=== PATIENT | female | born 1990 | race Caucasian/White ===

== ENCOUNTER → 2017-05-10 18:47 | Outpatient (CLI) | payer MEDICAID, SELFPAY ==
[2017-05-10 20:29] LABS: Chlamydia Trachomatis by PCR Negative (Negative); Neisserai gonorrhoeae by PCR Negative (Negative); Probe Check PASS; Sample Adequacy Control PASS; Specimen Processing Control PASS
[2017-05-14 15:19] LABS: HPV Reflexed? NOT INDICATED
== END ==
PROVIDERS: Visit Provider Obstetrics & Gynecology
DX: Z12.4 Encounter for screening for malignant neoplasm of cervix (principal); Z11.3 Encounter for screening for infections with a predominantly sexual mode of transmission
CPT/HCPCS: 87491; 87591; 88175; G0145

== ENCOUNTER → 2017-05-20 15:22 | Outpatient (CLI) | payer MEDICAID, SELFPAY ==
[2017-05-20 18:14] LABS: Absolute Neutrophil Count 6.7 X10^3/uL (2.0-7.7); Basophil# 0.02 X10^3/uL; Basophil% 0.2 % (0-1); Eosinophils% 1.2 % (0-5); Hemoglobin 10.9 g/dl (12.0-15.0); Lymphocyte % 16.2 % (19-41); Mean Corpuscular Hgb 28.8 pg (27.0-32.0); Mean Corpuscular Volume 87.1 fL (81-99); Mean Platelet Vol. 12.3 fl (6.2-12.0); Monocyte# 0.45 X10^3/uL; Monocyte% 5.2 % (0-10); Neutrophil # 6.66 X10^3/uL (2.7-7.7); Neutrophil % 77.1 % (47-70); Platelet Count 246 K/mm3 (150-450); RBC Distribution Width CV 14.3 % (11.6-14.6); RBC Distribution Width SD 44.2 fl (35.1-43.9); Red Blood Count 3.79 M/mm3 (4.2-5.4); White Blood Count 8.6 K/mm3 (4.4-11.0)
[2017-05-20 18:17] LABS: POSITIVE COUNT NO; POSITIVE DIFFERENTIAL NO; POSITIVE MORPHOLOGY NO
[2017-05-20 18:28] LABS: Color, Urine Straw (Yellow); Glucose, Dipstick Normal (Normal); Ketone-Dipstick Negative (Negative); Leukocyte Esterase-Dipstick Negative /ul (Negative); Nitrite-Dipstick Negative (Negative); Occult Blood-Urine Negative /ul (Negative); Protein-Dipstick Negative (Negative); Urine Bilirubin Dipstick Negative (Negative); Urine Clarity Clear (Clear); Urine Urobilinogen Normal (Normal)
[2017-05-20 18:29] LABS: Thyroid Stim Hormone (TSH) 1.07 uIU/mL (0.358-3.74)
[2017-05-20 18:59] LABS: Amphetamine Urine VISTA NEGATIVE (<1000 ng/mL); Barbiturate Urine VISTA NEGATIVE (< 200 ng/mL); Benzodiazepine Urine VISTA NEGATIVE (< 200 ng/mL); Cocaine Urine VISTA NEGATIVE (< 300 ng/mL); Ecstacy Urine VISTA NEGATIVE (< 500 ng/mL); Methadone Urine VISTA NEGATIVE (< 300 ng/mL); PCP Urine VISTA NEGATIVE (< 25 ng/mL); THC Urine VISTA NEGATIVE (< 50 ng/mL); Vista UDS pH Range 6
[2017-05-20 19:07] LABS: HIV - WCH Non-Reactive (Nonreactive)
[2017-05-22 11:22] LABS: HEPATITIS B SURFACE AG Negative (Negative); Hep C Antibodies <0.1 s/co ratio (0.0-0.9)
[2017-05-24 02:58] LABS: Prenatal RPR NONREACTIVE (NONREACTIVE)
== END ==
PROVIDERS: Visit Provider Obstetrics & Gynecology
DX: Z34.82 Encounter for supervision of other normal pregnancy, second trimester (principal); Z3A.00 Weeks of gestation of pregnancy not specified
CPT/HCPCS: 36415; 80307; 81002; 84443; 85025; 86703; 86762; 86803; 87340

== ENCOUNTER → 2017-08-12 09:00 | Outpatient (CLI) | payer MEDICAID, SELFPAY ==
--- NOTE | 2017-08-12 09:00 | DT_ITS ---
This patient was seen during an EMR downtime August 12, 2017 - August 19, 2017. This patient may have a combination of paper and electronic documentation or all paper documentation. All documentation is viewable within the e-chart portion of [facility] for each patient visit.
[2017-08-18 02:40] LABS: Glucose Challenge Gest 1H 50g 57 mg/dL (70-140)
[2017-08-18 03:02] LABS: Hemoglobin 9.3 g/dl (12.0-15.0); Mean Corpuscular Hgb 26.7 pg (27.0-32.0); Mean Corpuscular Volume 86.2 fL (81-99); Mean Platelet Vol. 12.6 fl (6.2-12.0); Platelet Count 225 K/mm3 (150-450); Red Blood Count 3.48 M/mm3 (4.2-5.4); Scan Indicated on CBC? Y/N NO; White Blood Count 8.2 K/mm3 (4.4-11.0)
== END ==
PROVIDERS: Visit Provider Obstetrics & Gynecology
DX: Z34.83 Encounter for supervision of other normal pregnancy, third trimester (principal)
CPT/HCPCS: 36415; 82950; 85027

== ENCOUNTER → 2017-10-14 13:36 | Outpatient (CLI) | payer MEDICAID, SELFPAY ==
[2017-10-14 17:04] LABS: Group B Strep DNA By PCR Negative (Negative); Internal Control PASS; Probe Check PASS; Specimen Processing Control PASS
== END ==
PROVIDERS: Visit Provider Obstetrics & Gynecology
DX: Z36.85 Encounter for antenatal screening for Streptococcus B (principal)
CPT/HCPCS: 87081; 87653

== ENCOUNTER 2017-10-30 07:03 | Inpatient (IN) | payer MEDICAID, SELFPAY ==
[2017-10-30 07:16] VITALS: BMI 27.6
[2017-10-30] MEDS: Lactated Ringers 1,000 ML 50 ML IV ×2 (07:45→12:00)
[2017-10-30] MEDS: Oxytocin 30 units/NS 500 ml 30 UNITS/500 ML IV.SOLN IV (07:53)
[2017-10-30 08:07] LABS: Hematocrit 30.9 % (37-47); Mean Corp Hgb Conc 32.4 g/gl (32-36); Mean Corpuscular Hgb 26.2 pg (27.0-32.0); Mean Corpuscular Volume 81.1 fL (81-99); Mean Platelet Vol. 12.5 fl (6.2-12.0); Platelet Count 201 K/mm3 (150-450); RBC Distribution Width SD 45.8 fl (35.1-43.9); Red Blood Count 3.81 M/mm3 (4.2-5.4); White Blood Count 8.8 K/mm3 (4.4-11.0)
[2017-10-30 08:08] LABS: Scan Indicated on CBC? Y/N NO
[2017-10-30] MEDS: fentaNYL-bupivacaine (epidural) 100 ML BAG EPIDURAL (12:15)
--- NOTE | 2017-10-30 12:27 | PCM.PN.BLA ---
Progress Note LABOR PROGRESS NOTE Induction at 39 6/7 wk Epidural just placed and now comfortable. Pain was 7-8 and now 0 AVSS Pitocin at 6 mIU/min CX: 3/75/-2 to -3 VTX EFM 130-140s avg variability. Accels noted. Category I tracing UCs q 1-3 mins. with some coupling and spacing A/P: 39 6/7 wk EGA. Induction. Adequate progress noted. Epidural placed, comfortable. Continue labor. Position changes to assist rotation and descent
--- NOTE | 2017-10-30 14:47 | PCM.PN.BLA ---
Progress Note LABOR PROGRESS NOTE Pitocin at 6 mIU/min EFM 110-120s avg variability. Accels noted. Early decels and some variable decels Category I tracing UCs noted q 2-3 mins CX: per RN check 1438 6/-2 A/P: 39 6/7 wk induction. Continue induction. Anticipate .
[2017-10-30] MEDS: Oxytocin 30 units/NS 500 ml 30 UNITS/500 ML IV.SOLN 334 UNITS IV (16:28)
--- NOTE | 2017-10-30 16:32 | PCM.OB.VAG ---
Vaginal Delivery Maternal Presentation: Elective Induction 39 6/7 wk induction Method of Induction: Pitocin, Amniotomy Amniotic Membrane Rupture Type: Artificial Amniotic Fluid Description: Clear Final CANDIS: 10/31/17 Gestational age: 39 Weeks and 6 Days Date of Procedure: 10/30/17 Pre-Operative Diagnosis: 39+ wk induction Post-Operative Diagnosis: same Surgery/ Procedure Performed: Spontaneous Vaginal Delivery Type of Anesthesia: Epidural Description of Procedure: of vasquez viable male. 8/9 ap intact perineum. No nuchal cord. Shoulders delivered easily. to maternal abdomen with spont cry. Delayed cord clamping. Cord then clamped x two and cut. PP exam no lacerations Placenta delivered by spont expulsion, expression. 3V cord, normal appearing intact with trailing membranes Counts correct EBL 200 cc Presentation: Vertex, ANMOL Placental Delivery Description: Spontaneous Placenta Disposition: [facility] Cord Vessel Description: 3 Vessels Nuchal Cord Compression: Without compression Cord Entanglement: None Drain: Mario to straight drain Estimated Blood Loss: 200 A gender: Male (1 minute): 8 (5 minute): 9 Episiotomy Description: None Laceration: None Medications given after delivery: IV Pitocin Complications: None
--- NOTE | 2017-10-30 16:35 | PCM.DCVAG ---
Discharge Diet: No Restrictions Discharge Activity: May Shower, May Take a Tub Bath May resume sexual activity in: 4-6 weeks Additional Activity Instructions:: Nothing in the vagina for 4-6 weeks. You may return to work/school in 6 weeks. Additional Instructions: If you experience any of the following, contact your healthcare provider. Bleeding that soaks a pad every hour for 2 hours Fever 100.4 or higher Unrelieved abdominal pain Problems urinating (including inability to urinate or burning while urinating). Visual changes Severe headache Flu-like symptoms Pain or redness in one of both of your breasts Pain, warmth, tenderness or swelling in your legs, especially the calf area Frequent nausea and vomiting Symptoms of depression or anxiety If you experience any of the following, call 911 or go to the nearest Emergency Room. Chest pain Problems breathing Seizure activity Partial or complete paralysis of a body part, slurred speech, weakness or drooping of the face, or a sudden inability to walk or hold your balance Allergies/Adverse Reactions: Allergies No Known Allergies Allergy (Verified 10/30/17 08:03) Medications to take at Discharge Vits [Prenatabs FA] 1 tablet PO DAILY 10/21/16 Please Follow Up With: Bonita Corbin MD - [phone] When: Call to make an appointment with your doctor in 6 weeks. Primary Care Physician: Care Physician,No Primary [Primary Care Provider] - Test Results: Test results from this visit will be discussed in further detail at your follow-up appointment, if applicable.
[2017-10-30] MEDS: Oxytocin 30 units/NS 500 ml 30 UNITS/500 ML IV.SOLN 167 UNITS IV (16:58)
[2017-10-30] MEDS: Ibuprofen 600 MG Tablet PO (17:30)
[2017-10-30] MEDS: 0.9% Saline Lock 10 ML Syringe IV (18:00)
[2017-10-30 19:45] VITALS: BP 112/63; PULSE 92; RESP 16; TEMP 36.9; O2SAT 97
[2017-10-31 00:20] VITALS: BP 115/61; PULSE 71; RESP 16; TEMP 36.8
[2017-10-31] MEDS: Ibuprofen 600 MG Tablet PO (00:24)
[2017-10-31 04:30] VITALS: BP 115/69; PULSE 70; RESP 16; TEMP 36.3
[2017-10-31 08:00] VITALS: BP 111/56; PULSE 67; RESP 16; TEMP 36.4
--- NOTE | 2017-10-31 08:20 | PCM.PN.OB ---
Subjective: PPD#1 Induction at 39 6/7 wk Doing well. Pain control adequate. Baby 9# Nursing. No concerns voiced. - Physical Exam General: Alert, Oriented x3, Cooperative, No apparent distress HEENT: Atraumatic Neck: Supple Abdomen: Soft - Fundus firm NT approx at umbilicus Psych/Mental Status: Normal Affect Vital Signs Temp Pulse Resp BP Pulse Ox 97.3 F L 70 16 115/69 97 10/31/17 04:30 10/31/17 04:30 10/31/17 04:30 10/31/17 04:30 10/30/17 19:45 Oxygen Delivery Method Room Air Weight: 82.372 kg Body Mass Index (BMI) 27.6 Intake and Output for Last 24 Hours 10/29/17 10/30/17 10/31/17 23:59 23:59 23:59 Intake Total 3590 / 3590 Output Total 4700 / 4700 Balance -1110 / -1110 Laboratory Tests Past 24 Hrs 10/30/17 07:45 Blood Type O POSITIVE Antibody Screen NEGATIVE Medical Necessity - Tobacco Use Smoking Status: Never smoker Assessment/Plan PPD#1 Stable . Continue routine care.
[2017-10-31] MEDS: Acetaminophen 500 MG Tablet 1000 MG PO (09:39)
[2017-10-31] MEDS: Prenatal Vits Tablet 1 TABLET PO (09:39)
[2017-10-31 12:00] VITALS: BP 111/72; PULSE 76; RESP 18; TEMP 36.6
[2017-10-31 16:00] VITALS: BP 137/74; PULSE 74; RESP 18; TEMP 37.3
[2017-10-31 20:01] VITALS: BP 127/77; PULSE 84; RESP 16; TEMP 36.6; O2SAT 98
== END 2017-10-31 20:25 | disposition home or self-care (01) | DRG 373 ==
PROVIDERS: Admitting Provider Obstetrics & Gynecology; Visit Provider Obstetrics & Gynecology
DX: O99.02 Anemia complicating childbirth (principal); D64.9 Anemia, unspecified; O76 Abnormality in fetal heart rate and rhythm complicating labor and delivery; Z79.899 Other long term (current) drug therapy; Z3A.39 39 weeks gestation of pregnancy; Z37.0 Single live birth
CPT/HCPCS: 59025; 59050; 85027; 86850; 86900; 99218; J7120; A4216; G0378

== ENCOUNTER → 2018-12-23 09:23 | Outpatient (CLI) | payer MEDICAID, SELFPAY ==
[2018-12-23 13:56] LABS: Chlamydia Trachomatis by PCR Negative (Negative); Neisserai gonorrhoeae by PCR Negative (Negative); Probe Check PASS; Sample Adequacy Control PASS; Specimen Processing Control PASS
== END ==
PROVIDERS: Visit Provider Obstetrics & Gynecology
DX: Z12.4 Encounter for screening for malignant neoplasm of cervix (principal); Z11.3 Encounter for screening for infections with a predominantly sexual mode of transmission; Z34.81 Encounter for supervision of other normal pregnancy, first trimester
CPT/HCPCS: 87491; 87591

== ENCOUNTER → 2019-01-12 10:15 | Outpatient (CLI) | payer MEDICAID, SELFPAY ==
[2019-01-12 10:45] LABS: Absolute Lymphocyte Count 1.34 X10^3/uL (0.83-4.51); Absolute Neutrophil Count 5.1 X10^3/uL (2.0-7.7); Basophil# 0.02 X10^3/uL; Basophil% 0.3 % (0-1); Eosinophil# 0.17 X10^3/uL; Eosinophils% 2.4 % (0-5); Hematocrit 36.7 % (37-47); Hemoglobin 12.2 g/dL (12.0-15.0); Lymphocyte # 1.34 X10^3/ul (4.0); Mean Corp Hgb Conc 33.2 g/dL (32-36); Mean Corpuscular Hgb 29.9 pg (27.0-32.0); Mean Platelet Vol. 12.1 fl (6.2-12.0); Monocyte# 0.38 X10^3/uL; Monocyte% 5.4 % (0-10); NRBC Flagged by Analyzer 0 % (0-5); Neutrophil # 5.14 X10^3/uL (2.7-7.7); Neutrophil % 72.6 % (47-70); Platelet Count 203 K/mm3 (150-450); RBC Distribution Width CV 12.9 % (11.6-14.6); RBC Distribution Width SD 42.1 fl (35.1-43.9); Red Blood Count 4.08 M/mm3 (4.2-5.4); White Blood Count 7.1 K/mm3 (4.4-11.0)
[2019-01-12 10:48] LABS: Color, Urine Yellow (Yellow); Glucose, Dipstick Normal (Normal); Ketone-Dipstick Negative (Negative); Leukocyte Esterase-Dipstick 500 /ul (Negative); Nitrite-Dipstick Negative (Negative); Occult Blood-Urine Negative /ul (Negative); Protein-Dipstick Negative (Negative); Urine Bilirubin Dipstick Negative (Negative); Urine Clarity Sl. Cloudy (Clear); Urine Urobilinogen Normal (Normal)
[2019-01-12 11:22] LABS: Thyroid Stim Hormone (TSH) 0.64 uIU/mL (0.358-3.74)
[2019-01-12 12:05] LABS: HIV - WCH Non-Reactive (Nonreactive); Hepatitis B Surface Antigen Non-Reactive (Nonreactive); Hepatitis C Antibody Non-Reactive (Nonreactive); Rubella IgG 41.2 IU/mL; Vitamin D,25 Hydroxy 22.6 ng/mL (29.95-100.01)
[2019-01-15 02:20] LABS: Prenatal RPR NONREACTIVE (NONREACTIVE)
== END ==
PROVIDERS: Visit Provider Obstetrics & Gynecology
DX: Z34.81 Encounter for supervision of other normal pregnancy, first trimester (principal)
CPT/HCPCS: 36415; 81002; 82306; 84443; 85025; 86703; 86762; 86803; 87340

== ENCOUNTER → 2019-05-04 12:55 | Outpatient (CLI) | payer MEDICAID, SELFPAY ==
[2019-05-04 14:19] LABS: Hematocrit 33.3 % (37-47); Hemoglobin 10.7 g/dL (12.0-15.0); Mean Corp Hgb Conc 32.1 g/dL (32-36); Mean Corpuscular Hgb 29.4 pg (27.0-32.0); Mean Corpuscular Volume 91.5 fL (81-99); Mean Platelet Vol. 11.9 fl (6.2-12.0); Platelet Count 222 K/mm3 (150-450); RBC Distribution Width CV 12.7 % (11.6-14.6); Red Blood Count 3.64 M/mm3 (4.2-5.4); White Blood Count 10.4 K/mm3 (4.4-11.0)
[2019-05-04 14:25] LABS: Glucose Challenge Gest 1H 50g 88 mg/dL (70-140)
== END ==
PROVIDERS: Referring Provider Obstetrics & Gynecology; Visit Provider Obstetrics & Gynecology
DX: Z34.83 Encounter for supervision of other normal pregnancy, third trimester (principal)
CPT/HCPCS: 36415; 82950; 85027

== ENCOUNTER → 2019-07-02 | Outpatient (CLI) | payer MEDICAID, SELFPAY | END | disposition home or self-care (01) | PROVIDERS: Visit Provider Obstetrics & Gynecology | DX: Z36.85 Encounter for antenatal screening for Streptococcus B (principal) | CPT/HCPCS: 87081 ==

== ENCOUNTER 2019-07-23 07:15 | Inpatient (IN) | payer MEDICAID, SELFPAY ==
[2019-07-23] VITALS (74 sets, daily range): BP systolic 93–172; BP diastolic 51–82; PULSE 68–111; RESP 16; TEMP 36.2–37.1; O2SAT 91–100; BMI 28.1
--- NOTE | 2019-07-23 07:31 | PCM.HPOB.BLA ---
- Problem List (1) 39 weeks gestation of Status: Acute History and Physical Date of Admission: 07/23/19 [facility] ANTEPARTUM RECORD - HISTORY AND PHYSICAL (07/23/2019) Name: ELISA RUIZ OB Physician: LALIT [place]'s Physician: Dr Sanchez ...................................................................... : 1990 Age: 29 Address: [address] [place] [address] Phone: H) [phone] Insurance Carrier: COUNTS INCLUDE 234 BEDS AT THE [facility] [phone] Emergency Contact: AKBAR RUIZ [phone] ...................................................................... Final CANDIS: 07/30/19 By Ultrasound: PARITY: (G-Total Pregnancies P-Fullterm,Premature,Induced AB,Spont AB, Ectopics, Multiple,Living) CANDIS CONFIRMATION: By LMP: 10/22/18 Final CANDIS: 07/30/19 BLOOD TYPE: O positive AFP: 1 HR P 114 GBS: Original Ordering Provider: Bonita DUBON Culture Group B Beta Streptococcus is not isolated. Original Ordering Provider: Bonita DUBON Culture Group B Beta Streptococcus is not isolated. Original Ordering Provider: Xavier DUBON Culture Group B Beta Streptococcus is not isolated. Rublla titer (>10 immune)--Apr 04 2016: immune Hepatatis B tomeka AG-- Klaus 25 2017: negative CULTURES:-- OB PROBLEM LIST: with closely spaced pregnancies-good nutrition w protein enc. Declines AFP and CF tests. BREECH and ANTERIOR PREVIA at 20 wks Repeat sono at 28-30 wks-- previa resolved ALLERGIES: No Known Allergies MEDICATIONS: Gummy 400 mcg-35 mg-25 mg-5 mg chewable tablet One pill by mouth twice a day Vitamin D3 2,000 unit capsule 1 po daily SOCIAL HISTORY: Smoking - Never Alcohol Use - None Diet - moderate, balanced diet, caffeine < 2 drinks per day and Water intake tries for one gallon daily. Lifestyle - Exercise - Active with toddlers. Likes to walk. Employer - homemaker Job Description - Illicit Drug Use - denies use of street drugs Sexual Activity - Residence - owns a home Place of - [place] Spouse-Sig Other Name - Akbar Spouse-Sig Other Occupation - [employer] Spouse-Sig Other Phone No - [phone] Children Name(s) - Sheila(17) JW, Herrera (ELB) PRIOR DELIVERY HISTORY DEL DATE GEST LAB WT LB WT OZ TYPE ANES LABOR TX Oct 25 41 6 7 9 Vag Epidural No Oct 26 39 7 9 0 Vag Epidural No ANTEPARTUM FLOW CHART VISIT GE RTC FU F F OH U U DATE WK MD WKS HT PN HR M SS BP ED WT OH GL D EF ST __ ____ ___ __ __ ___ __ __ __ ___ __ __ __ ___ __ 08 July JMW 6 38 V + + 118/76 0 183 - - 2+ 65 -2 Jun JMW 1 37 + + 122/64 0 184 - - Jun JMW 1 36 V + + 122/66 tr 181 tr - 1 50 -2 Jun JMW 2 34 + + 124/64 sl 180 - - Jun 08 JMW 3 + O / 0 May 07 JMW 3 27 + + 116/62 0 171 - - Apr 02 JMW 4 24 + ++ 108/76 0 163 ne ne Feb 26 ELB 4 - B U+ + 124/62 0 157 - - Feb 22 ELB 4 - - + O 98/70 0 151 - - Jan 19 ELB 4 - - U+ US 90/60 0 144 tr - ANTEPARTUM NOTE(S): Jul 17 2019: see note, Induce per Request Jul 09 2019: Good FM Jul 02 2019: Low Pressure,GBS Today,LARC form signed Jun 18 2019: Good FM May 28 2019: Doing well. Good FM. No ctxs or bleeding. No PIH sxs. May 04 2019: CBC,OGCT Today,Good FM,Feeling Well Apr 06 2019: glucola given to pt for next visit. Mar 09 2019: Feb 09 2019: feeling well. Jan 12 2019: doing well, NOB today COMPREHENSIVE ANTEPARTUM NOTE(S): Jul 17 2019: Elisa is here for a PNV. She is doing well. Good FM. No edema. No complaints or concerns expressed at this time. MK Jul 09 2019: Elisa reporting good FM. No Sx labor. Following COVID precautions at home. GBS negative 07/02/19. Sent to pre-register. kb Jul 06 2019: H taken to OB. tkg Jun 18 2019: Doing well. Good FM. Voicing no concerns. kb Feb 09 2019: Reviewed NOB labs. She is on vit D supplement now. Plans 20 wk sono at next PNV. EB Jan 12 2019: Elisa is here for NOB nurse visit with CANDIS July 30, 2019 planning a vag del at [facility] with epidural, using Dr Yonatan Sanchez for post disch ped care and to breastfeed. 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 Her , Akbar is the asparagus cutter at [employer]. The pg was unplanned but welcome. They are on [facility]. Elisa nursed for 8 mo and 12 mo without issues. She has NKA to drugs, food, latex or the environment. She's a lifetime non smoker, non drinker and denies any street drug use. Her diet is well balanced with the exception of milk and dairy products. She does eat cheese, cream cheese or sour cream and milk on cereal. Reviewed w EB and Vit D level added to routine labs. Elisa drinks minimal caffeine and close to one gallon of water daily. She is active with her toddlers and likes to walk. Genetics Screening form completed noting no family issues and her only med is a gummy vitamin. She declines AFP and CF testing. Warning signs in pg reviewed along w otc meds ok to take, lifting restriction of 25#, wearing her seatbelt very low on her abdomen and reaching the office after hours with understanding voiced. The importance of good nutrition and protein in her diet discussed as re to her closely spaced pregnancies. She often needs to lift her two children. Enc to use good body mechanics and to use someone else to lift whenver possible. She is agreeable. They have a copy of What to Expect. US done today as well as labs. No classes are needed. Enc to call with any concerns. Visit took approx 35 min. Joanna SO NEW Jan 12 2019: O positive, RI. Hgb 12.2 g/dl. Vit D sl low at 22. EB Jan 11 2019: Pap WNL. EB Dec 23 2018: Here for confirmation of appt. Last pap in 05/2017 Next due by 05/2020. May have pap today along with cervical cultures or defer. EB Dec 23 2018: Elisa is here for missed menses appt. She reports LMP of 10/22, +UPT today in office, approx EDC 07/30/19. She has mild nausea and feels pretty fatigued but otherwise ok. She has a 1 and 2 year old at home. She will have pap and cultures today. Educational materials provided and reviewed. OTC meds for minor discomforts reviewed. Increased po fluids, healthy diet, and 30 minutes of exercise 5x/wk encouraged. Pap and cultures will be due today. LMT Dec 23 2018: GC, chlamydia NEG EB REVIEW OF SYSTEMS: GENERAL - Denies fever, or chills SKIN - Denies rash, new skin lesions, or change in moles EYES - Denies blurred vision, or change in visual acuity EARS - Denies ear pain, or difficulty hearing NOSE - Denies nasal congestion, discharge, or bleeding MOUTH - Denies sore throat, or difficulty swallowing NECK - Denies pain or swelling RESPIRATORY - Denies shortness of breath, cough, wheezing CARDIOVASCULAR - Denies palpitations, chest pain, orthopnea, PND, peripheral edema, syncope or claudication GASTROINTESTINAL - Denies nausea, vomiting, diarrhea, constipation, Denies abdominal pain, melena and or bright red blood GENITOURINARY - Denies dysuria, frequency of urination, urgency, or hesitancy MUSCULOSKELETAL - Denies joint or muscle pain, or back pain NEUROLOGICAL - Denies localized numbness, weakness, or tingling PSYCHIATRIC - Denies depression, anxiety, substance abuse or suicide attempts ENDOCRINE - Denies heat or cold intolerance, weight loss or gain, increasing thirst HEMATO-IMMUNOLOGIC - Denies easy bruising, bleeding, oral ulcerations or recurrent infections GENETICS SCREENING: Age 35+ years: No Thalassemia: No Neural Tube Defect: No Down Syndrome: No ADRIANA-SACHS: No Sickle Cell Disease: No Hemophilia: No Musc. Dystrophy: No Cystic Fibrosis: No-declines screening Fannin Chorea: No Mental Retardation: No Fragile X: No Other genetic: No Other defects: No SABs/still births: No Drugs since LMP: No INFECTION HISTORY: High risk AIDS: No High risk Hepatitis: No Exposed to TB: No Exposed to Herpes: No Rash/viral illness since LMP: No History of STD: No MENSTRUAL HISTORY: *Menses Amount/Duration: normal amountMenses Regularity: IrregularFrequency: variableBCP's at Conception: NoMenarche (Age Onset): 14* PAST SUMMARY: PARITY: 1. Total Pregnancies............ 3 2. Full Term Pregnancies........ 2 3. Premature.................... 0 4. Abortions - Induced.......... 0 5. Abortions - Spontaneous...... 0 6. Ectopics..................... 0 7. Multiple Births.............. 0 8. Living Children.............. 2 PAST #1: Date of :.................. 10/22/16 Gestation Weeks:................ 41 Length of labor(hours):......... 6 Sex:............................ F Weight-lbs:............... 7 Weight-oz:................ 9 Type of Delivery:............... Vag Type of Anesthesia:............. Epidural Place of Delivery:.............. [place] Treatment of Labor?:.... No Comment: IND PAST #2: Date of :.................. 10/30/17 Gestation Weeks:................ 39 Length of labor(hours):......... 7 Sex:............................ M Weight-lbs:............... 9 Weight-oz:................ 0 Type of Delivery:............... Vag Type of Anesthesia:............. Epidural Place of Delivery:.............. [place] Treatment of Labor?:.... No Comment: IND General Appearence: 29 yo female in no acute distress Vital Signs: AF, VSS Heart: RRR without rubs or gallops Lungs: CTA x 2 Breasts: deferred Abdomen: gravid Pelvis: Cervix: 2+/60 percent effaced Presentation: cephalic Station: -2 station Fetus: Size: AGA Movement: present Heart: present PAST MEDICAL HISTORY: presents at 39.0 weeks gestation for elective IOL by amniotomy and Pitocin. Expect
[2019-07-23] MEDS: Lactated Ringers 1,000 ML 200 ML IV (07:35)
[2019-07-23 07:58] LABS: Absolute Lymphocyte Count 2.26 X10^3/uL (0.83-4.51); Absolute Neutrophil Count 8.3 X10^3/uL (2.0-7.7); Basophil# 0.05 X10^3/uL; Basophil% 0.4 % (0-1); Eosinophil# 0.17 X10^3/uL; Eosinophils% 1.5 % (0-5); Hematocrit 31.7 % (37-47); Hemoglobin 9.8 g/dL (12.0-15.0); Lymphocyte # 2.26 X10^3/ul (4.0); Lymphocyte % 19.4 % (19-41); Mean Corp Hgb Conc 30.9 g/dL (32-36); Mean Corpuscular Hgb 25.9 pg (27.0-32.0); Mean Corpuscular Volume 83.6 fL (81-99); Mean Platelet Vol. 11.9 fl (6.2-12.0); Monocyte# 0.76 X10^3/uL; Monocyte% 6.5 % (0-10); NRBC Flagged by Analyzer 0 % (0-5); Neutrophil # 8.27 X10^3/uL (2.7-7.7); Neutrophil % 71.2 % (47-70); Platelet Count 248 K/mm3 (150-450); RBC Distribution Width CV 13.9 % (11.6-14.6); RBC Distribution Width SD 42.3 fl (35.1-43.9); Red Blood Count 3.79 M/mm3 (4.2-5.4); White Blood Count 11.6 K/mm3 (4.4-11.0)
[2019-07-23] MEDS: Oxytocin 30 units/NS 500 ml 30 UNITS/500 ML IV.SOLN IV (08:02)
[2019-07-23] MEDS: Lactated Ringers 500 ML 999 ML IV ×2 (09:04→11:29)
[2019-07-23] MEDS: fentaNYL-bupivacaine (epidural) 100 ML BAG EPIDURAL (13:35)
[2019-07-23] MEDS: Oxytocin 30 units/NS 500 ml 30 UNITS/500 ML IV.SOLN 334 UNITS IV (15:50)
--- NOTE | 2019-07-23 16:03 | OP.PCM_ITS ---
Vaginal Delivery Maternal Presentation: Elective Induction Method of Induction: Pitocin, Amniotomy Amniotic Membrane Rupture Type: Artificial Amniotic Fluid Description: Clear Final CANDIS: 07/30/19 Final CANDIS Source: US <20 weeks Gestational age: 39 Weeks and 0 Days Date of Procedure: 07/23/19 Pre-Operative Diagnosis: IUP Post-Operative Diagnosis: IUP Surgery/ Procedure Performed: Spontaneous Vaginal Delivery Type of Anesthesia: Epidural Description of Procedure: Spontaneous vaginal delivery of a viable female infant with Apgars of 9/9 from an occiput anterior presentation with clear amniotic fluid and normal three- vessel placenta. No episiotomy or laceration. Sponges okay. Delivery physician: Xavier Tobias MD. Presentation: Vertex Placental Delivery Description: Spontaneous Placenta Disposition: [facility] Cord Vessel Description: 3 Vessels Cord Entanglement: None Estimated Blood Loss: 250 cc A gender: Female (1 minute): 9 (5 minute): 9 Episiotomy Description: None Laceration: None Medications given after delivery: IV Pitocin Complications: None
--- NOTE | 2019-07-23 16:05 | DCINST_ITS ---
<Xavier Tobias - Last Filed: 07/23/19 16:05> Discharge Diet: No Restrictions Discharge Activity: May Shower, May Take a Tub Bath May resume sexual activity in: 4-6 weeks Additional Activity Instructions:: Nothing in the vagina for 4-6 weeks. You may return to work/school in 6 weeks. Call your doctor if you observe: Inability to urinate, Inability to have a bowel movement, Using more than one pad per hour Additional Instructions: If you experience any of the following, contact your healthcare provider. * Bleeding that soaks a pad every hour for 2 hours * Fever 100.4 or higher * Unrelieved incision or abdominal pain * Swelling, redness, discharge or bleeding from your incision or episiotomy site * Your incision begins to separate * Problems urinating (including inability to urinate or burning while urinating). * Visual changes * Severe headache * Flu-like symptoms * Pain or redness in one of both of your breasts * Pain, warmth, tenderness or swelling in your legs, especially the calf area * Frequent nausea and vomiting * Symptoms of depression or anxiety If you experience any of the following, call 911 or go to the nearest Emergency Room. * Chest pain * Problems breathing * Seizure activity * Partial or complete paralysis of a body part, slurred speech, weakness or drooping of the face, or a sudden inability to walk or hold your balance Allergies/Adverse Reactions: Allergies No Known Allergies Allergy (Verified 10/30/17 08:03) Medications to take at Discharge Vits [Prenatabs FA] 1 tablet PO DAILY 10/21/16 Please Follow Up With: Xavier Tobias MD - [phone] When: Call to make an appointment with your doctor in 6 weeks. Primary Care Physician: Care Physician,No Primary [Primary Care Provider] - Test Results: Test results from this visit will be discussed in further detail at your follow- up appointment, if applicable. <Coleen Campoverde - Last Filed: 07/24/19 08:49> Additional Instructions: If you experience any of the following, contact your healthcare provider. * Bleeding that soaks a pad every hour for 2 hours * Fever 100.4 or higher * Unrelieved incision or abdominal pain * Swelling, redness, discharge or bleeding from your incision or episiotomy site * Your incision begins to separate * Problems urinating (including inability to urinate or burning while urinating). * Visual changes * Severe headache * Flu-like symptoms * Pain or redness in one of both of your breasts * Pain, warmth, tenderness or swelling in your legs, especially the calf area * Frequent nausea and vomiting * Symptoms of depression or anxiety If you experience any of the following, call 911 or go to the nearest Emergency Room. * Chest pain * Problems breathing * Seizure activity * Partial or complete paralysis of a body part, slurred speech, weakness or drooping of the face, or a sudden inability to walk or hold your balance Test Results: Test results from this visit will be discussed in further detail at your follow- up appointment, if applicable.
--- NOTE | 2019-07-23 16:05 | PCM.DCVAG ---
<Xavier Tobias - Last Filed: 07/23/19 16:05> Discharge Diet: No Restrictions Discharge Activity: May Shower, May Take a Tub Bath May resume sexual activity in: 4-6 weeks Additional Activity Instructions:: Nothing in the vagina for 4-6 weeks. You may return to work/school in 6 weeks. Call your doctor if you observe: Inability to urinate, Inability to have a bowel movement, Using more than one pad per hour Additional Instructions: If you experience any of the following, contact your healthcare provider. Bleeding that soaks a pad every hour for 2 hours Fever 100.4 or higher Unrelieved incision or abdominal pain Swelling, redness, discharge or bleeding from your incision or episiotomy site Your incision begins to separate Problems urinating (including inability to urinate or burning while urinating). Visual changes Severe headache Flu-like symptoms Pain or redness in one of both of your breasts Pain, warmth, tenderness or swelling in your legs, especially the calf area Frequent nausea and vomiting Symptoms of depression or anxiety If you experience any of the following, call 911 or go to the nearest Emergency Room. Chest pain Problems breathing Seizure activity Partial or complete paralysis of a body part, slurred speech, weakness or drooping of the face, or a sudden inability to walk or hold your balance Allergies/Adverse Reactions: Allergies No Known Allergies Allergy (Verified 10/30/17 08:03) Medications to take at Discharge Vits [Prenatabs FA] 1 tablet PO DAILY 10/21/16 Please Follow Up With: Xavier Tobias MD - [phone] When: Call to make an appointment with your doctor in 6 weeks. Primary Care Physician: Care Physician,No Primary [Primary Care Provider] - Test Results: Test results from this visit will be discussed in further detail at your follow-up appointment, if applicable. <Coleen Campoverde - Last Filed: 07/24/19 08:49> Additional Instructions: If you experience any of the following, contact your healthcare provider. Bleeding that soaks a pad every hour for 2 hours Fever 100.4 or higher Unrelieved incision or abdominal pain Swelling, redness, discharge or bleeding from your incision or episiotomy site Your incision begins to separate Problems urinating (including inability to urinate or burning while urinating). Visual changes Severe headache Flu-like symptoms Pain or redness in one of both of your breasts Pain, warmth, tenderness or swelling in your legs, especially the calf area Frequent nausea and vomiting Symptoms of depression or anxiety If you experience any of the following, call 911 or go to the nearest Emergency Room. Chest pain Problems breathing Seizure activity Partial or complete paralysis of a body part, slurred speech, weakness or drooping of the face, or a sudden inability to walk or hold your balance Test Results: Test results from this visit will be discussed in further detail at your follow-up appointment, if applicable.
[2019-07-23] MEDS: 0.9% Saline Lock 10 ML Syringe IV (18:20)
[2019-07-23] MEDS: Ibuprofen 600 MG Tablet PO (21:42)
[2019-07-24] VITALS (11 sets, daily range): BP systolic 117–139; BP diastolic 63–74; PULSE 68–90; RESP 14–20; TEMP 36.4–37.1
--- NOTE | 2019-07-24 08:49 | PCM.PN.OB ---
Patient Problems: Active and Suspected Problems 39 weeks gestation of (Acute) Subjective: No issues overnight. Doing well, desires discharge to home today. . Denies heavy lochia or pain. Objective: avss - Physical Exam Vitals/I&O's: Vital Signs Temp Pulse Resp BP Pulse Ox 97.7 F L 81 14 139/66 H 98 07/24/19 03:46 07/24/19 03:46 07/24/19 03:46 07/24/19 03:46 07/23/19 17:51 Oxygen Delivery Method Room Air Weight: 84.1 kg Body Mass Index (BMI) 28.1 Intake and Output for Last 24 Hours 07/22/19 07/23/19 07/24/19 23:59 23:59 23:59 Intake Total 2541.23 / 2541.23 Output Total 3450 / 3450 Balance -908.77 / -908.77 General: Alert, Oriented x3, Cooperative, No apparent distress HEENT: Atraumatic, Normocephalic Lungs: Normal air movement Cardiovascular: Regular rate, Regular Rhythm Abdomen: Soft, Non Tender, Non-Distended, - - Fundus firm and nontender Extremities: No edema, No Calf Tenderness Neurological: Neuro grossly intact Psych/Mental Status: Normal Affect, Appropriate, Alert and oriented to time, place, person, mood and affect Laboratory Results 07/23/19 07:35: Blood Type O POSITIVE, Antibody Screen NEGATIVE Current Medications Acetaminophen (Tylenol) 1,000 mg PO Q8H PRN PRN PRN Reason: Pain Score 1-3/10 Bisacodyl (Dulcolax) 10 mg RECTAL UD PRN PRN Reason: If no BM Dibucaine (Dibucaine) 1 applic TOPICAL TID PRN PRN; Protocol PRN Reason: Discomfort Hydrocortisone (Hytone) 1 applic TOPICAL TID PRN PRN; Protocol PRN Reason: Discomfort Ibuprofen (Motrin) 600 mg PO Q6H PRN PRN PRN Reason: Pain Score 1-3/10 Last Admin: 07/23/19 21:42 Dose: 600 mg Documented by: Methylergonovine Maleate (Methergine) 0.2 mg IM X1 PRN PRN Reason: Excess bleeding/uterine atony Ondansetron HCl (Zofran) 4 mg IV Q4H PRN PRN PRN Reason: Nausea Oxycodone HCl (Oxyir) 5 - 10 mg PO Q4H PRN PRN PRN Reason: Pain Score 4-10/10 Senna/Docusate Sodium (Senokot-S, Sara-Colace) 1 - 2 tablet PO DAILY PRN PRN PRN Reason: Constipation Simethicone (Mylicon) 80 mg PO PCHS PRN PRN Reason: Indigestion/Stomach pain Sodium Chloride () 5 - 15 ml IV UD PRN PRN Reason: SALINE FLUSH Last Admin: 07/23/19 18:20 Dose: 10 ml Documented by: Zolpidem Tartrate (Ambien (Generic)) 5 mg PO QHS PRN PRN PRN Reason: Insomnia Medical Necessity - Tobacco Use Smoking Status: Never smoker Assessment/Plan All Active Problems 39 weeks gestation of (Acute) 29yo PPD#1 s/p doing well. -Rh positive - -Routine care -d/c home later today
[2019-07-24] MEDS: Ibuprofen 600 MG Tablet PO (09:23)
[2019-07-24] MEDS: Senna/Docusate Sodium 1 Tablet PO (09:44)
== END 2019-07-24 17:50 | disposition home or self-care (01) | DRG 560 ==
PROVIDERS: Admitting Provider Obstetrics & Gynecology; Referring Provider Obstetrics & Gynecology; Visit Provider Obstetrics & Gynecology
DX: O80 Encounter for full-term uncomplicated delivery (principal); Z3A.39 39 weeks gestation of pregnancy; Z37.0 Single live birth
CPT/HCPCS: 59025; 59050; 76815; 85025; 86850; 86900; 86901; 99218; J7120; A4216; G0378

== ENCOUNTER → 2020-10-25 | Outpatient (CLI) | payer MEDICAID, SELFPAY ==
[2019-07-23 07:22] VITALS: BMI 28.1
[2020-10-27 14:59] LABS: HPV Reflexed? NOT INDICATED
== END | disposition home or self-care (01) ==
LOC: LABSPEC 10:56
PROVIDERS: Visit Provider Obstetrics & Gynecology
DX: Z12.4 Encounter for screening for malignant neoplasm of cervix (principal)
CPT/HCPCS: 88175; G0145

== ENCOUNTER 2021-05-04 10:42 | Outpatient (CLI) | payer MEDICAID, SELFPAY ==
[2021-05-04 12:06] LABS: Color, Urine Yellow (Yellow); Glucose, Dipstick Normal (Normal); Ketone-Dipstick Negative (Negative); Leukocyte Esterase-Dipstick 25 /ul (Negative); Nitrite-Dipstick Negative (Negative); Occult Blood-Urine Negative /ul (Negative); Protein-Dipstick Negative (Negative); Specific Gravity, Urine 1.015 (1.002-1.030); Urine Bilirubin Dipstick Negative (Negative); Urine Clarity Sl. Cloudy (Clear); Urine Urobilinogen Normal (Normal); Urine pH 6.5 (5.0 - 8.0)
[2021-05-04 12:09] LABS: Absolute Lymphocyte Count 1.26 X10^3/uL (0.83-4.51); Absolute Neutrophil Count 3.9 X10^3/uL (2.0-7.7); Basophil# 0.03 X10^3/uL; Basophil% 0.5 % (0-1); Eosinophil# 0.16 X10^3/uL; Eosinophils% 2.8 % (0-5); Hematocrit 36.2 % (37-47); Hemoglobin 12.4 g/dL (12.0-15.0); Lymphocyte # 1.26 X10^3/ul (0.83-4.51); Lymphocyte % 21.8 % (19-41); Mean Corp Hgb Conc 34.3 g/dL (32-36); Mean Corpuscular Hgb 30.5 pg (27.0-32.0); Mean Corpuscular Volume 88.9 fL (81-99); Mean Platelet Vol. 12.3 fl (6.2-12.0); Monocyte# 0.36 X10^3/uL; Monocyte% 6.2 % (0-10); NRBC Flagged by Analyzer 0 % (0-5); Neutrophil # 3.94 X10^3/uL (2.7-7.7); Platelet Count 212 K/mm3 (150-450); RBC Distribution Width CV 12.8 % (11.6-14.6); RBC Distribution Width SD 41.9 fl (35.1-43.9); Red Blood Count 4.07 M/mm3 (4.2-5.4); White Blood Count 5.8 K/mm3 (4.4-11.0)
[2021-05-04 12:25] LABS: Thyroid Stim Hormone (TSH) 1.22 uIU/mL (0.358-3.74)
[2021-05-04 13:00] LABS: HIV - WCH Non-Reactive (Nonreactive); Hepatitis B Surface Antigen Non-Reactive (Nonreactive); Hepatitis C Antibody Non-Reactive (Nonreactive); Rubella IgG Reactive (Nonreactive); Syphilis Antibodies Non-reactive
[2021-05-07 07:07] LABS: Chlamydia By Nucleic Acid AMP Negative (Negative)
[2021-05-07 13:35] LABS: Gonococcus By Nucleic Acid AMP Negative (Negative)
== END 2021-05-04 23:59 | disposition home or self-care (01) ==
LOC: WOBLAB 10:43
PROVIDERS: Visit Provider Obstetrics & Gynecology
DX: Z34.81 Encounter for supervision of other normal pregnancy, first trimester (principal)
CPT/HCPCS: 36415; 81002; 84443; 85025; 86703; 86762; 86780; 86803; 87077; 87086; 87088; 87186; 87340; 87491; 87591

== ENCOUNTER → 2021-08-31 | Outpatient (CLI) | payer MEDICAID, SELFPAY ==
[2021-08-31 10:58] LABS: Hematocrit 32.8 % (37-47); Hemoglobin 10.4 g/dL (12.0-15.0); Mean Corp Hgb Conc 31.7 g/dL (32-36); Mean Corpuscular Hgb 27.7 pg (27.0-32.0); Mean Corpuscular Volume 87.2 fL (81-99); Mean Platelet Vol. 12.2 fl (6.2-12.0); Platelet Count 213 K/mm3 (150-450); RBC Distribution Width CV 12.6 % (11.6-14.6); RBC Distribution Width SD 40.2 fl (35.1-43.9); Red Blood Count 3.76 M/mm3 (4.2-5.4); White Blood Count 8.3 K/mm3 (4.4-11.0)
[2021-08-31 11:07] LABS: Glucose Challenge Gest 1H 50g 68 mg/dL (70-140)
== END | disposition home or self-care (01) ==
PROVIDERS: Visit Provider Obstetrics & Gynecology
DX: Z34.83 Encounter for supervision of other normal pregnancy, third trimester (principal)
CPT/HCPCS: 36415; 82950; 85027

== ENCOUNTER → 2021-10-31 | Outpatient (CLI) | payer MEDICAID, SELFPAY | END | disposition home or self-care (01) | LOC: LABSPEC 11:55 | PROVIDERS: Visit Provider Obstetrics & Gynecology | DX: Z36.85 Encounter for antenatal screening for Streptococcus B (principal) | CPT/HCPCS: 87077; 87081; 87186 ==

== ENCOUNTER 2021-11-19 22:39 | Inpatient (IN) | payer MEDICAID, SELFPAY ==
[2021-11-19 21:57] VITALS: PULSE 83; O2SAT 98
[2021-11-19 21:58] VITALS: TEMP 36.7
[2021-11-19 21:59] VITALS: BP 123/72; PULSE 84
[2021-11-19 22:14] VITALS: BMI 28.8
[2021-11-19 22:36] LABS: ROM Internal Control Test YES-OK TO RESULT pt. (Internal QC); ROM Patient Test POSITIVE (Negative)
[2021-11-19] MEDS: Lactated Ringers 1,000 ML 50 ML IV (23:27)
[2021-11-20] VITALS (65 sets, daily range): BP systolic 104–145; BP diastolic 55–82; PULSE 61–105; RESP 15–18; TEMP 36–37.1; O2SAT 87–100
[2021-11-20 00:13] LABS: Absolute Lymphocyte Count 2.15 X10^3/uL (0.83-4.51); Absolute Neutrophil Count 8.5 X10^3/uL (2.0-7.7); Basophil# 0.04 X10^3/uL; Basophil% 0.3 % (0-1); Eosinophil# 0.14 X10^3/uL; Eosinophils% 1.2 % (0-5); Hematocrit 31.5 % (37-47); Hemoglobin 10.2 g/dL (12.0-15.0); Lymphocyte # 2.15 X10^3/ul (0.83-4.51); Lymphocyte % 18.7 % (19-41); Mean Corp Hgb Conc 32.4 g/dL (32-36); Mean Corpuscular Volume 77.2 fL (81-99); Monocyte% 5.2 % (0-10); NRBC Flagged by Analyzer 0 % (0-5); Neutrophil # 8.51 X10^3/uL (2.7-7.7); Neutrophil % 74.3 % (47-70); Platelet Count 243 K/mm3 (150-450); RBC Distribution Width SD 41.3 fl (35.1-43.9); Red Blood Count 4.08 M/mm3 (4.2-5.4); White Blood Count 11.5 K/mm3 (4.4-11.0)
[2021-11-20] MEDS: LACTATED RINGERS 500 ML 999 ML IV (01:05)
[2021-11-20] MEDS: fentaNYL-bupivacaine (epidural) 100 ML BAG EPIDURAL (02:06)
[2021-11-20] MEDS: Oxytocin 30 units/NS 500 ml 30 UNITS/500 ML IV.SOLN 334 UNITS IV (04:39)
--- NOTE | 2021-11-20 04:51 | PCM.HP.BLA ---
History and Physical Date of Admission: 11/20/21 HPI: 31-year-old G4, P3 at 39/4 weeks, CANDIS 11/23/2021 by LMP consistent with early ultrasound, admitted for spontaneous rupture membranes. Denies vaginal bleeding, reports contractions and movement. Denies headache or vision changes, chest pain or shortness of breath, nausea or vomiting, diarrhea or constipation, fevers or chills. : Uncomplicated [employer] history: G1 2017 full-term G2: 2018 full-term G3: 2021 full-term G4: Current Medical history: Seasonal allergies Surgical history: Denies Allergies: No known drug allergies Medications: vitamin Family history: Noncontributory Social history: Denies tobacco, alcohol, drug use Review of system: Negative otherwise stated above Physical exam: Blood pressure 120/59, pulse 74, temp 96.8?F, pulse ox 98% on room air General: No acute distress HEENT: Normocephalic/atraumatic, PERRLA Cardiorespiratory: No increased effort Abdomen: Soft, nontender, gravid Extremities: No edema Neurologic: No focal deficits, cranial nerves II through XII grossly intact Musculoskeletal: Strength 5 out of 5 throughout all extremities Cervical exam: 10 cm heart rate: 125/mod evgeny/+accel/no decel Tocoq4-5 panel: Gonorrhea/chlamydia negative Hepatitis C/hepatitis B negative Rubella immune Syphilis negative HIV negative O+ Assessment/plan: 31-year-old G4, P3 at 39/4 weeks admitted for spontaneous rupture of membranes. Uncomplicated . ?Admit to labor and delivery ? Epidural if desired ? Expectant management, will consider augmentation with Pitocin if needed ? GBS positive. Treat with penicillin
--- NOTE | 2021-11-20 04:58 | EX.PCM.OBRPT ---
Vaginal Delivery Operative Information Date of Procedure: 11/20/21 Pre-Operative Diagnosis: Aldana intrauterine Post-Operative Diagnosis: Aldana intrauterine Surgery / Procedure Performed: Spontaneous Vaginal Delivery Type of Anesthesia: Epidural Estimated Blood Loss: 300cc Findings Description of Procedure: Spontaneous vaginal delivery of viable infant male. No nuchal cord. Baby to mom. Cord clamped and cut. Spontaneous delivery of placenta. No lacerations. Infant A Gender: Male (1 minute): 8 (5 minute): 9
[2021-11-20] MEDS: 0.9% Saline Lock 10 ML Syringe IV (07:47)
[2021-11-21] VITALS (7 sets, daily range): BP systolic 109–124; BP diastolic 51–67; PULSE 67–75; RESP 15–16; TEMP 36.3–36.6; O2SAT 99
--- NOTE | 2021-11-21 05:11 | NURSING ---
Charting done by Kirk RN reviewed by this nurse. Mesfin RN
--- NOTE | 2021-11-21 06:57 | PCM.PN.OB ---
Subjective Subjective day 1. Lochia minimal. Breast-feeding going well. Pain controlled. Objective Data Objective Data Vital Signs: Vital Signs Temp Pulse Resp BP Pulse Ox O2 Del Method 97.3 F L 75 15 109/51 L 91 Room Air 11/21/21 04:29 11/21/21 04:30 11/21/21 04:20 11/21/21 04:30 11/20/21 06:25 11/20/21 15:39 Oxygen Delivery Method Room Air Weight: 86.092 kg Body Mass Index (BMI) 28.8 Intake & Output: Intake and Output for Last 24 Hours 11/19/21 11/20/21 11/21/21 23:59 23:59 23:59 Intake Total 1790.84 / 1790.84 Output Total 1500 / 1500 Balance 290.84 / 290.84 Lab / Micro Data Result Diagrams: 11/19/21 23:20 Micro: Microbiology 11/19/21 23:20 Nasal Secretion SARS-CoV-2 Antigen (Rapid) - Final Physical Exam Const alert, oriented x3 and no apparent distress HEENT normocephalic Head and Scalp: atraumatic Neck full ROM Resp normal respiratory effort Cardio regular rate GI normal to inspection, nondistended, normoactive bowel sounds GI Narrative: Uterus 2 cm below umbilicus Back/Spine normal ROM Extremity normal to inspection Extremity Narrative: Minimal pedal edema Neuro no focal motor deficits and no sensory deficits noted Psych mental status grossly normal and affect normal Assessment & Plan (1) Vaginal delivery: PLAN: day 1 status post . Doing well. Discharge home today.
--- NOTE | 2021-11-21 06:59 | DCINST_ITS ---
Discharge Instructions Diet Discharge Diet: No restrictions Activity Discharge Activity: Return to Normal Activity and May Shower May resume sexual activity in: 4-6 weeks Weight Bearing Status: Weight bearing as tolerated Lifting Restrictions: No greater than 25 pounds Dressing / Incision Call your doctor if you observe: Fever of 101 or Higher, Change in Color, Inability to urinate, Using more than 1 pad per hour, Shortness of breath, Dizziness, Swelling in the ankles, Chest pain and Calf discomfort Follow Up Care Please Follow Up With: Mihai Ruffin MD When: 4 to 6-week visit Test Results: Test results from this visit will be discussed in further detail at your follow- up appointment, if applicable. Discharge Plan Admission Admit Date/Time: 11/19/21 22:39 Primary Reason for Your Visit: Vaginal delivery Attending Provider: Deborah Ruffin Primary Care Provider: Care Physician,Zuri Primary Discharge Orders/Prescriptions Prescriptions: No Action Prenatabs FA 1 TABLET tablet 1 tab PO DAILY Referrals / Follow Up: Care Physician,No Primary [Primary Care Provider] - Disposition Disposition (needs filled in before D/C Order can be placed): Home, Self Care
== END 2021-11-21 12:25 | disposition home or self-care (01) | DRG 560 ==
LOC: WP 11-20 09:52 → WPOUT 11-21 10:53
PROVIDERS: Admitting Provider Student in an Organized Health Care Education/Training Program; Visit Provider Student in an Organized Health Care Education/Training Program
DX: O99.824 Streptococcus B carrier state complicating childbirth (principal); Z37.0 Single live birth; Z3A.39 39 weeks gestation of pregnancy
CPT/HCPCS: 59025; 59050; 84112; 85025; 86850; 86900; 86901; 87811; 99218; J7120; A4216; G0378

== ENCOUNTER → 2022-09-28 | Outpatient (CLI) | payer MEDICAID, SELFPAY ==
[2022-09-28 12:43] LABS: Absolute Lymphocyte Count 1.55 X10^3/uL (0.83-4.51); Absolute Neutrophil Count 5.3 X10^3/uL (2.0-7.7); Basophil# 0.04 X10^3/uL; Basophil% 0.5 % (0-1); Eosinophil# 0.34 X10^3/uL; Eosinophils% 4.4 % (0-5); Hematocrit 38.3 % (37-47); Hemoglobin 12.6 g/dL (12.0-15.0); Lymphocyte # 1.55 X10^3/ul (0.83-4.51); Lymphocyte % 20.2 % (19-41); Mean Corp Hgb Conc 32.9 g/dL (32-36); Mean Corpuscular Hgb 29.8 pg (27.0-32.0); Mean Corpuscular Volume 90.5 fL (81-99); Mean Platelet Vol. 12.3 fl (6.2-12.0); Monocyte# 0.41 X10^3/uL; Monocyte% 5.3 % (0-10); NRBC Flagged by Analyzer 0 % (0-5); Neutrophil # 5.31 X10^3/uL (2.7-7.7); Neutrophil % 69.3 % (47-70); Platelet Count 227 K/mm3 (150-450); RBC Distribution Width CV 13.1 % (11.6-14.6); RBC Distribution Width SD 43.1 fl (35.1-43.9); Red Blood Count 4.23 M/mm3 (4.2-5.4); White Blood Count 7.7 K/mm3 (4.4-11.0)
[2022-09-28 14:55] LABS: HIV - WCH Non-Reactive (Nonreactive); Hepatitis B Surface Antigen Non-Reactive (Nonreactive); Hepatitis C Antibody Non-Reactive (Nonreactive); Rubella IgG Reactive (Nonreactive); Syphilis Antibodies Non-reactive
[2022-09-29 06:09] LABS: V-Zoster IgG (Immunity) > 4000 index (Immune >165)
== END | disposition home or self-care (01) ==
LOC: WOBLAB 11:46
PROVIDERS: Visit Provider Obstetrics & Gynecology
DX: Z34.81 Encounter for supervision of other normal pregnancy, first trimester (principal); Z3A.00 Weeks of gestation of pregnancy not specified
CPT/HCPCS: 36415; 85025; 86703; 86762; 86780; 86787; 86803; 86850; 86900; 86901; 87340

== ENCOUNTER 2023-04-08 08:10 | Inpatient (IN) | payer MEDICAID, SELFPAY ==
[2023-04-08] VITALS (45 sets, daily range): BP systolic 101–153; BP diastolic 51–83; PULSE 56–100; RESP 16; TEMP 36.8–37.4; O2SAT 82–100; BMI 29.2
--- OUTSIDE RECORDS SUMMARY | 2023-04-08 07:38 | XMS RPT_ITS | CCD ---
Author Name Unknown Address [address] [place] [address] Organization [facility] Care Team Providers Care Communications Planner Name Role Phone Stephen CLAIMS DIRECTOR.Raul RAE Primary Care Provider LEWIS MITCHELLLENE M Primary Care Unavailable JENNIFER CEE Referring Unavailable STEPHEN, RAUL M Primary Care Unavailable VIC RODRIGUEZ Attending Unavailable STEPHEN, RAUL M Primary Care Unavailable SAHARA MCKEE Attending Unavailable STEPHEN, RAUL M Primary Care Unavailable JENNIFER CEE Referring Unavailable STEPHEN, RAUL M Primary Care Unavailable JENNIFER CEE Attending Unavailable STEPHEN, RAUL M Primary Care Unavailable JENNIFER CEE Referring Unavailable HUGO MARIANO Attending Unavail able STEPHEN, RAUL M Primary Care Unavailable SAHARA MCKEE Attending Unavailable STEPHEN, RAUL M Primary Care Unavailable NOLAN CHAUHAN Attending Unavailable STEPHEN, RAUL M Primary Care Unavailable VIC RODRIGUEZ Attending Unavailable STEPHEN, RAUL M Primary Care Unavailable NATALIO BANEGAS Attending Unavailable STEPHEN, RAUL M Primary Care Unavailable NOLAN CHAUHAN Attending Unavailable STEPHEN, RAUL M Primary Care Unavailable STEPHEN, RAUL M Primary Care Unavailable VIC RODRIGUEZ Referring Unavailable STEPHEN, RAUL M Primary Care Unavailable STEPHEN, RAUL M Primary Care Unavailable HUGO MARIANO Attending Unavail able Stephen CLAIMS DIRECTOR.Raul RAE Primary Care Provider Medications Completed/Discontinued Medications Medication Drug Class(es) Dates Sig (Normalized) Sig (Original) azelastine hydrochloride 0.137 mg/actuat metered dose nasal spray (10 sources) Histamine-1 Receptor Antagonist Start: 11-23-2020 End: 02-26-2023 take 1 spray(s) nasal route twice daily azelastine (ASTELIN) 0.1% nasal spray Indications: Environmental allergies Use 1 [place] in each nostril twice daily. 30 mL 5 11/23/2020 02/26/2023 Discontinued Problems Active Problems Problem Classification Problem Date Documented Da te Episodic/Chronic Bacterial infection; unspecified site (1 source) Bacteria present; Translations: [Streptococcus, group B, as the cause of diseases classified elsewhere] Onset: 03-13-2023 03-13-2023 Episodic Other complications of (1 source) Supervision of other high risk pregnancies, third trimester; Translations: [Supervision of other high risk pregnancies, third trimester] Onset: 03-18-2023 Episodic Other complications of (1 source) High risk ; Translations: [Supervision of other high risk pregnancies, third trimester] Onset: 03-18-2023 03-18-2023 Episodic Other and delivery including normal (12 sources) ; Translations: [Encounter for supervision of normal , unspecified, unspecified trimester] Onset: 12-17-2022 12-17-2022 Episodic Other screening for suspected conditions (not mental disorders or infectious disease) (1 source) Patient encounter status; Translations: [Encounter for other specified screening] 12-07-2022 Episodic Residual codes; unclassified (1 source) Gestation period, 21 weeks; Translations: [21 weeks gestation of ] 12-07-2022 Episodic Residual codes; unclassified (1 source) Gestation period, 28 weeks; Translations: [28 weeks gestation of ] 01-14-2023 Episodic Residual codes; unclassified (1 source) Gestation period, 34 weeks; Translations: [34 weeks gestation of ] 02-26-2023 Episodic Residual codes; unclassified (1 source) 37 weeks gestation of ; Translations: [37 weeks gestation of ] Onset: 03-18-2023 Episodic Residual codes; unclassified (1 source) 24 weeks gestation of ; Translations: [24 weeks gestation of ] Onset: 01-14-2023 Episodic Residual codes; unclassified (1 source) Gestation period, 39 weeks; Translations: [39 weeks gestation of ] 04-05-2023 Episodic Past or Other Problems Problem Classification Problem Date Documented Da te Episodic/Chronic Hemorrhage during ; abruptio placenta; placenta previa (10 sources) Placenta previa; Translations: [Complete placenta previa NOS or without hemorrhage, unspecified trimester] Onset: 12-07-2022 11-26-2022 Episodic Other complications of (8 sources) History of delivery of macrosomal ; Translations: [Supervision of with other poor reproductive or obstetric history, unspecified trimester] Onset: 12-17-2022 12-17-2022 Episodic NEGATED: Highlighted row has been ruled out!Unclassified (3 sources) No known active problems 10-01-2022 Results Test Name Value Interpretation Reference Range Facil ity Vital Signs Date Time Vital Sign Value Performing Clinician Faci lity 04-05-2023 10:56-0500 Body weight 86.64 kg Nolan Chauhan APRN.CNM Work Phone: [facility] 04-05-2023 10:56-0500 Diastolic blood pressure 68 mm[Hg] Nolan Chauhan APRN.CNM Work Phone: [facility] 04-05-2023 10:56-0500 Systolic blood pressure 114 mm[Hg] Nolan Chauhan APRN.CNM Work Phone: [facility] 02-26-2023 09:44-0500 Body weight 83.83 kg Sahara Mckee MD Work Phone: [facility] 02-26-2023 09:44-0500 Diastolic blood pressure 74 mm[Hg] Sahara Mckee MD Work Phone: [facility] 02-26-2023 09:44-0500 Systolic blood pressure 120 mm[Hg] Sahara Mckee MD Work Phone: [facility] 01-14-2023 08:30-0500 Body weight 77.56 kg Hugo Jama MD Work Phone: [facility] 01-14-2023 08:30-0500 Diastolic blood pressure 60 mm[Hg] Hugo Jama MD Work Phone: [facility] 01-14-2023 08:30-0500 Systolic blood pressure 100 mm[Hg] Hugo Jama MD Work Phone: [facility] Encounters Encounter Date Encounter Type Care Provider Facility Start: 04-05-2023 End: 04-05-2023 ambulatory RAUL MITCHELL Facility:[facility] Start: 04-05-2023 End: 04-05-2023 Patient encounter procedure Nolan Chauhan APRN.CNM Work Phone: OB/Gynecology Procedures Date Procedure Procedure Detail Performing Clinician Start: 04-05-2023 URINE OB DIP B/O Amrit Chauhan APRN.CNM Work Phone: Start: 02-26-2023 URINE OB DIP B/O Sahara Mckee MD Work Phone: Start: 01-14-2023 URINE OB DIP B/O Hugo Jama MD Work Phone: Start: 12-07-2022 Us preg uterus after 1st trimest 03/11 gestation Vic Rodriguez MD Work Phone: Start: 10-02-2022 GONORRHEA/CHLAMYDIA NAAT [facility] Provider Start: 09-28-2022 Antibody screen Danny Cee CLAIMS DIRECTORJesúsCNM Work Phone: Start: 09-28-2022 CBC panel - Blood by Automated count [facility] Provider Start: 09-28-2022 HEP B SURF AG SCRN [facility] Provider Start: 09-28-2022 HEPATITIS C ANTIBODY IA WITH CONFIRMATION [facility] Provider Start: 09-28-2022 HIV 1 2 COMBO(AG/AB) ,WITH REFLEX TO DIFFERENTIATION [facility] Provider Start: 09-28-2022 RUBELLA IGG AB [facility] Prov ider Start: 09-28-2022 SYPHILIS TOTAL W/REFLEX [facility] Start: 09-28-2022 TYPE + SCREEN (EXTERNAL LAB) [facility] Provider Start: 08-09-2020 Adult depression scr eening assessment Cynthia Solorzano LPN Plan of Treatment Date Care Activity Detail Author Start: 11-24-2023 PAP TESTING PAP TESTING [facility] Start: 11-24-2023 Screening for malign ant neoplasm of cervix Pap Testing [facility] Start: 03-11-2023 Depression Assessment Depression Ass essment [facility] Start: 11-26-2022 End: 11-27-2023 OBSTETRIC ULTRASOUND [facility] OBSTETRIC ULTRASOUND [facility]I Anc Imaging Routine Placenta previa antepartum Expected: 11/26/2022, Expires: 11/27/2023 [facility] Work Phone: Payers Date Payer Category Payer Medicaid [id number] 2018 Medicaid [id number] Social History Date Type Detail Facility Start: 08-09-2020 End: 10-01-2022 Tobacco smoking status NHIS Never smoked tobacco [facility] Start: 08-09-2020 End: 10-01-2022 Tobacco use and exposure Smokeless tobacco non-user [facility] Start: 11-23-2020 End: 04-05-2023 Alcohol intake Ex-drinker (finding) [facility] Start: 1990 Sex Assigned At Not on file [facility] Start: 11-21-2022 End: 12-17-2022 History of Social function [facility] Start: 11-21-2022 End: 12-17-2022 Tobacco use panel [facility] Adult Depression Scr eening Assessment 0 [facility] Start: 07-15-2022 [facility] Start: 12-17-2022 Education 17 [facility] Goals Date Patient Goal Desired Activity /State Personal health goal Clinical Notes 11-22-2021 to 04-05-2023 Quick Notes - Nolan Chauhan APRN.CNM - 04/05/2023 11:15 AM ESTPatient InstructionsPrenatal Quick Notes - Sahara Mckee MD - 02/26/2023 10:04 AM ESTPatient InstructionsPatient Instructions Note Date & Type Note Facility 04-05-2023 Miscellaneous Notes Formattin g of this note might be different from the original. SUYAPA-S: Marcus Ruiz is a 33 year old female who presents at 39w5d with CANDIS:04/07/2023, by Last Menstrual Period for a routine visit. Denies headache, visual changes, chest pain, shortness of breath, vaginal bleeding, leakage of fluid, or dysuria. Feeling well, no complaints. O: See flow sheet Gen: No apparent distress Abd: Gravid, nontender S=D vertex by exam. Requested membrane sweep, tolerated well. ASSESSMENT/PLAN: 1. 39 weeks gestation of 2. Encounter for supervision of normal in multigravida P: 1) Labor instructions reviewed and when to call 2) RTO PP visit 3) Requesting elective IOL 04/09/23 at 7am with vik and eugene. Reviewed r/b/a and plan. CANDIS: 04/07/23 by LMP, confirmed at 12week and 19w4d US completed at [facility]. Nolan Chauhan APRN.CNM Medical Decision Making: Problems: Low: Stable chronic illness Data: Unique source(s) for external note(s) reviewed: 2 Unique test result(s) reviewed: 2 Unique test(s) ordered: 2 Risk: Moderate: Moderate risk from testing/treatment Medical Decision Making Level: 4 - Moderate documented in this encounter [facility] 04-05-2023 Instructions Nolan Chauhan APRN.CNM - 04/05/2023 10:47 AM EST Vitamin K- CDC Evidence Based SIGNS AND SYMPTOMS OF LABOR 1. Contractions every 10 minutes or more often 2. Clear, pink, or brownish fluid (water) leaking from vagina 3. Feeling that baby is pushing down, pressure 4. Low, dull backache 5. Cramps that feel like a period 6. Cramps with or without diarrhea If you notice any of the above symptoms, contact our office at [phone] and ask to speak with a nurse. After hours, you can call doctors registry at [phone] OR call [facility] at [phone] and ask to have the doctor supervisor of operations paged. If you consider this an emergency, dial 9--9 or go to your nearest emergency department. NEED HELP? Are you dealing with a violent or abusive relationship? Are you a victim of rape or sexual assult? Call [facility] ([place]) 24 hour Crisis Hotline: 328.586.4182 or 622-788-6146. MANUAL Your Guide to a Healthy manual is now on-line. Visit [email or web address] to download your free copy documented in this encounter [facility] 02-26-2023 Miscellaneous Notes Formattin g of this note might be different from the original. KJ - VB No. LOF No. CTXS No. Movement: present. Other c/o: No. Medication list reviewed. Physical Exam See Flow Sheet Gen: no accute distress, well appearing Abd: soft, nontender, gravid A/P 34w2d Estimated Date of Delivery: 04/07/23 PTL precautions reviewed, Kick counts reviewed. Sahara Mckee MD documented in this encounter [facility] 02-26-2023 Instructions Melonie Posey MA - 02/26/2023 9:40 AM EST SEQUENTIAL SCREENINGS The [facility] offers sequential screenings for women who are interested in screenings for chromosomal abnormalities and certain defects during a . The sequential screen combines ultrasound and blood tests to determine the risk of chromosomal abnormalities, including Down's Syndrome (Trisomy 21) and Trisomy 18, as well as open neural tube defects including spina bifida. Ultrasound examination is performed between 11 weeks and 13 weeks gestational age. Blood tests are drawn after the ultrasound and again later in the between 15 and 21 weeks gestational age. Please let your physician know if you are interested in this testing. It will require an appointment with our exhaust emissions automotive technician. This is not an ultrasound performed by a physician in our office during a routine visit. SIGNS AND SYMPTOMS OF LABOR 1. Contractions every 10 minutes or more often 2. Clear, pink, or brownish fluid (water) leaking from vagina 3. Feeling that baby is pushing down, pressure 4. Low, dull backache 5. Cramps that feel like a period 6. Cramps with or without diarrhea If you notice any of the above symptoms, contact our office at [phone] and ask to speak with a nurse. After hours, you can call [facility] at [phone] OR call [facility] at [phone] and ask to have the doctor supervisor of operations paged. If you consider this an emergency, dial 9-1-1 or go to your nearest emergency department. NEED HELP? Are you dealing with a violent or abusive relationship? Are you a victim of rape or sexual assult? Call [facility] ([place]) 24 hour Crisis Hotline: 238.426.6082 or 166-177-2243. MANUAL Your Guide to a Healthy manual is now on-line. Visit [email or web address] to download your free copy documented in this encounter [facility] 01-29-2023 Miscellaneous Notes Formattin g of this note might be different from the original. 2nd risk assessment form submitted 01/29/23 Rere Wheeler RN documented in this encounter [facility] 01-14-2023 Miscellaneous Notes Formattin g of this note might be different from the original. DM-Pt doing well. Denies vaginal Bleeding, Leaking fluid, or regular Contractions. Pt reports good movement Physical Exam: Gen: female in no apparent distress Abd: soft, Gravid. Non tender to palpation. See flow sheet A/P: @ 28.1 weeks 1) 28 week labs today 2) declines tdap 3) larc form signed and declined 4) growth us 32 weeks- placental location Hugo Scruggs MD documented in this encounter [facility] 01-14-2023 Instructions Preeti Albright Ma - 01/14/2023 7:48 AM EST SEQUENTIAL SCREENINGS The [facility] offers sequential screenings for women who are interested in screenings for chromosomal abnormalities and certain defects during a . The sequential screen combines ultrasound and blood tests to determine the risk of chromosomal abnormalities, including Down's Syndrome (Trisomy 21) and Trisomy 18, as well as open neural tube defects including spina bifida. Ultrasound examination is performed between 11 weeks and 13 weeks gestational age. Blood tests are drawn after the ultrasound and again later in the between 15 and 21 weeks gestational age. Please let your physician know if you are interested in this testing. It will require an appointment with our exhaust emissions automotive technician. This is not an ultrasound performed by a physician in our office during a routine visit. SIGNS AND SYMPTOMS OF LABOR 1. Contractions every 10 minutes or more often 2. Clear, pink, or brownish fluid (water) leaking from vagina 3. Feeling that baby is pushing down, pressure 4. Low, dull backache 5. Cramps that feel like a period 6. Cramps with or without diarrhea If you notice any of the above symptoms, contact our office at [phone] and ask to speak with a nurse. After hours, you can call doctors registry at [phone] OR call [facility] at [phone] and ask to have the doctor supervisor of operations paged. If you consider this an emergency, dial 9-1-6 or go to your nearest emergency department. NEED HELP? Are you dealing with a violent or abusive relationship? Are you a victim of rape or sexual assult? Call [facility] ([place]) 24 hour Crisis Hotline: 874.109.3003 or 595-753-4155. MANUAL Your Guide to a Healthy manual is now on-line. Visit [email or web address] to download your free copy documented in this encounter [facility] 12-26-2022 Miscellaneous Notes Formattin g of this note might be different from the original. 1st risk assessment form submitted 12/26/2022. Rosario Grove RN documented in this encounter [facility] 12-21-2022 Note HNO ID: [id number] Author: Jennifer Cee APRN.JOSE Service: ? Author Type: Mold Mover Type: Progress Notes Filed: 12/21/2022 2:18 PM Note Text: INITIAL OB ASSESSMENT- PATIENT TRANSFER FROM [facility] Provider: Jennifer Cee APRN CNM HPI: Marcus is a 32 year old White here to establish Obstetrical Care. Patient's last menstrual period was 07/01/2022 (exact date). from OB Dating Form. Cycles regular was unplanned but accepted Complaints: None OB History T4 L4 SAB0 IAB0 Ectopic0 Multiple0 Live Births4 # 1 - Date: 10/22/16, Sex: Female, Weight: 8 lb 5 oz (3.771 kg), GA: 41w4d, Delivery: Vaginal, Spontaneous, Apgar1: None, Apgar5: None, Living: Living, Comments: Induced due to post dates,lightly stained mec, true knot in cord, banjo used x3 gentle passes,due to adherent placent and membranes, 1st dgree lac,250cc # 2 - Date: 10/30/17, Sex: Male, Weight: 9 lb (4.082 kg), GA: 39w6d, Delivery: Vaginal, Spontaneous, Apgar1: None, Apgar5: None, Living: Living, Comments: Elective pit ind, AROM 200cc, Intact perineum # 3 - Date: 07/23/19, Sex: Female, Weight: 9 lb 3 oz (4.167 kg), GA: 39w0d, Delivery: Vaginal, Spontaneous, Apgar1: None, Apgar5: None, Living: Living, Comments: No episitomy or lacerations,250cc # 4 - Date: 11/20/21, Sex: Male, Weight: 8 lb 12 oz (3.969 kg), GA: 38w0d, Delivery: Vaginal, Spontaneous, Apgar1: None, Apgar5: None, Living: Living, Comments: 300cc # 5 - Date: None, Sex: None, Weight: None, GA: None, Delivery: None, Apgar1: None, Apgar5: None, Living: None, Comments: None Previous history: Prior : never History of 4th degree laceration: No History of shoulder dystocia: No History of Hypertensive disorders including pre-eclampsia, chronic hypertension or gestational hypertension: No History of gestational diabetes: No Patient's Risk Screening for delivery: Have you had a prior vasquez between 20w and 36w6d?: No MEDICAL/PSYCHOSOCIAL HISTORY: History of hemorrhage or bleeding concerns: No Thyroid Disease: No History of chronic hypertension: No History of pre-existing diabetes: No No results found for: ABORHD BMI 25.91 kg/(m2) History of abnormal pap: No Prior treatment for cervical dysplasia: none. History of STDs: None Tobacco use: No Caffeine use: Yes 1 cup of coffee a day Drug use: No Alcohol use: No Multivitamin with Folic acid: Yes Mu-Ism or heritage: No Would refuse blood transfusion if medically necessary: No Are you currently employed? No Do you have any history of depression, anxiety, PTSD, eating disorders or other mood problems: No Do you have any safety concerns or history of traumatic events that you would like to discuss with your provider: No SDOH Screening: How often does this describe you? I don't have enough money to pay my bills: Never Within the past 12 months, have you worried that your food would run out before you had money to buy more: Never In the past 12 months, has lack of reliable transportation kept you from going to medical appointments or work, or from keeping things needed for daily living: Never In the past 12 months, have you had any concerns about having a place to live, or about the condition or quality of your housing: Never Are there any cultural or spiritual needs we should be aware of: No Depression/Anxiety Screening: denies symptoms of depression. OB Depression and Anxiety Screening- This Encounter (since 12/20/2022) None Genetic Screening: Partner present: No Patient verbalized knowledge of partner family health history: Yes Do you or your partner have any personal or family history of defects not previously discussed: No Do you have history of a complicated by anomaly, genetic condition, or demise: No ACOG Recommended Screening Screening for early gestational diabetes testing: Criteria for early testing requires elevated BMI plus one other risk factor: BMI 25.91 kg/(m2) (risk factor if > than 25 or 23 in Americans) Additional risk factors: None She does not meet ACOG criteria for early gestational DM screening. Screening for low dose aspirin use for the prevention of pre-eclampsia: Low dose aspirin should be considered if the patient has one high or two moderate risk factors: High risk factors: None Moderate risk ractors: None She does not meet criteria for low dose ASA Marital Status: Partner: Name: Akbar Ruiz Age: 34 Occupation: Director Of Speech Pathology Gender: Male History of STDs: None PAST MEDICAL HISTORY Diagnosis Date Anemia Environmental allergies PAST SURGICAL HISTORY Procedure Laterality Date EXTRACTION ERUPTED TOOTH/EXR Current Outpatient Medications Medication Sig Dispense Refill azelastine (ASTELIN) 0.1% nasal spray Use 1 [place] in each nostril twice d (more content not included)... [facility] 12-17-2022 Note HNO ID: [id number] Author: Antonia Miles RN Service: ? Author Type: ? Type: Progress Notes Filed: 12/17/2022 8:55 AM Note Text: INITIAL OB ASSESSMENT OB Provider: Antonia Miles RN HPI: Marcus is a 32 year old White here to establish Obstetrical Care. Patient's last menstrual period was 07/01/2022 (exact date). from OB Dating Form. Cycles regular was unplanned but accepted Complaints: None OB History T4 L4 SAB0 IAB0 Ectopic0 Multiple0 Live Births4 # 1 - Date: 10/22/16, Sex: Female, Weight: 8 lb 5 oz (3.771 kg), GA: 41w4d, Delivery: Vaginal, Spontaneous, Apgar1: None, Apgar5: None, Living: Living, Comments: Induced due to post dates,lightly stained mec, true knot in cord, banjo used x3 gentle passes,due to adherent placent and membranes, 1st dgree lac,250cc # 2 - Date: 10/30/17, Sex: Male, Weight: 9 lb (4.082 kg), GA: 39w6d, Delivery: Vaginal, Spontaneous, Apgar1: None, Apgar5: None, Living: Living, Comments: Elective pit ind, AROM 200cc, Intact perineum # 3 - Date: 07/23/19, Sex: Female, Weight: 9 lb 3 oz (4.167 kg), GA: 39w0d, Delivery: Vaginal, Spontaneous, Apgar1: None, Apgar5: None, Living: Living, Comments: No episitomy or lacerations,250cc # 4 - Date: 11/20/21, Sex: Male, Weight: 8 lb 12 oz (3.969 kg), GA: 38w0d, Delivery: Vaginal, Spontaneous, Apgar1: None, Apgar5: None, Living: Living, Comments: 300cc # 5 - Date: None, Sex: None, Weight: None, GA: None, Delivery: None, Apgar1: None, Apgar5: None, Living: None, Comments: None Previous history: Prior : never History of 4th degree laceration: No History of shoulder dystocia: No History of Hypertensive disorders including pre-eclampsia, chronic hypertension or gestational hypertension: No History of gestational diabetes: No Patient's Risk Screening for delivery: Have you had a prior vasquez between 20w and 36w6d?: No MEDICAL/PSYCHOSOCIAL HISTORY: History of hemorrhage or bleeding concerns: No Thyroid Disease: No History of chronic hypertension: No History of pre-existing diabetes: No No results found for: ABORHD No weight on file for this encounter. History of abnormal pap: No Prior treatment for cervical dysplasia: none. History of STDs: None Tobacco use: No Caffeine use: Yes 1 cup of coffee a day Drug use: No Alcohol use: No Multivitamin with Folic acid: Yes Mu-Ism or heritage: No Would refuse blood transfusion if medically necessary: No Are you currently employed? No Do you have any history of depression, anxiety, PTSD, eating disorders or other mood problems: No Do you have any safety concerns or history of traumatic events that you would like to discuss with your provider: No SDOH Screening: How often does this describe you? I don't have enough money to pay my bills: Never Within the past 12 months, have you worried that your food would run out before you had money to buy more: Never In the past 12 months, has lack of reliable transportation kept you from going to medical appointments or work, or from keeping things needed for daily living: Never In the past 12 months, have you had any concerns about having a place to live, or about the condition or quality of your housing: Never Are there any cultural or spiritual needs we should be aware of: No Depression/Anxiety Screening: denies symptoms of depression. OB Depression and Anxiety Screening- This Encounter (since 12/16/2022) None Genetic Screening: Partner present: No Patient verbalized knowledge of partner family health history: Yes Do you or your partner have any personal or family history of defects not previously discussed: No Do you have history of a complicated by anomaly, genetic condition, or demise: No ACOG Recommended Screening Screening for early gestational diabetes testing: Criteria for early testing requires elevated BMI plus one other risk factor: No weight on file for this encounter. (risk factor if > than 25 or 23 in Americans) Additional risk factors: None She does not meet ACOG criteria for early gestational DM screening. Screening for low dose aspirin use for the prevention of pre-eclampsia: Low dose aspirin should be considered if the patient has one high or two moderate risk factors: High risk factors: None Moderate risk ractors: None She does not meet criteria for low dose ASA Marital Status: Partner: Name: Akbar Ruiz Age: 34 Occupation: Director Of Speech Pathology Gender: Male History of STDs: None PAST MEDICAL HISTORY Diagnosis Date Anemia Environmental allergies PAST SURGICAL HISTORY Procedure Laterality Date EXTRACTION ERUPTED TOOTH/EXR Current Outpatient Medications Medication Sig Dispense Refill 114-IRON A-G-FOLATE 1 ORAL Take by mouth. Cetirizine (ZYRTEC) 10 mg cap fluticaso (more content not included)... [facility] 12-17-2022 Miscellaneous Notes Formattin g of this note might be different from the original. DISTANCE HEALTH VISIT This Team Access Model visit is a phone encounter. It required patient-provider interaction for the medical decision making as documented below. I have communicated my name and active licensure. The patient's identity and physical location were verified at the time of this visit. Patient is transferring care from [facility]. We have received her medical records and they are sent to [facility] for review. She states her last visit there was on December 01. Patient is 5 para 4 with a history of 2 children with weights that were 9+ pounds. Patient has a low-lying placenta. See ultrasound report from December 07.Antonia Miles RN documented in this encounter [facility] 12-17-2022 History of Presen t illness Narrative INITIAL OB ASSESSMENT OB Provider: Antonia Miles RN HPI: Marcus is a 32 year old White here to establish Obstetrical Care. Patient's last menstrual period was 07/01/2022 (exact date). from OB Dating Form. Cycles regular was unplanned but accepted Complaints: None OB History T4 L4 SAB0 IAB0 Ectopic0 Multiple0 Live Births4 # 1 - Date: 10/22/16, Sex: Female, Weight: 8 lb 5 oz (3.771 kg), GA: 41w4d, Delivery: Vaginal, Spontaneous, Apgar1: None, Apgar5: None, Living: Living, Comments: Induced due to post dates,lightly stained mec, true knot in cord, banjo used x3 gentle passes,due to adherent placent and membranes, 1st dgree lac,250cc # 2 - Date: 10/30/17, Sex: Male, Weight: 9 lb (4.082 kg), GA: 39w6d, Delivery: Vaginal, Spontaneous, Apgar1: None, Apgar5: None, Living: Living, Comments: Elective pit ind, AROM 200cc, Intact perineum # 3 - Date: 07/23/19, Sex: Female, Weight: 9 lb 3 oz (4.167 kg), GA: 39w0d, Delivery: Vaginal, Spontaneous, Apgar1: None, Apgar5: None, Living: Living, Comments: No episitomy or lacerations,250cc # 4 - Date: 11/20/21, Sex: Male, Weight: 8 lb 12 oz (3.969 kg), GA: 38w0d, Delivery: Vaginal, Spontaneous, Apgar1: None, Apgar5: None, Living: Living, Comments: 300cc # 5 - Date: None, Sex: None, Weight: None, GA: None, Delivery: None, Apgar1: None, Apgar5: None, Living: None, Comments: None Previous history: Prior : never History of 4th degree laceration: No History of shoulder dystocia: No History of Hypertensive disorders including pre-eclampsia, chronic hypertension or gestational hypertension: No History of gestational diabetes: No Patient's Risk Screening for delivery: Have you had a prior vasquez between 20w and 36w6d?: No MEDICAL/PSYCHOSOCIAL HISTORY: History of hemorrhage or bleeding concerns: No Thyroid Disease: No History of chronic hypertension: No History of pre-existing diabetes: No No results found for: ABORHD No weight on file for this encounter. History of abnormal pap: No Prior treatment for cervical dysplasia: none. History of STDs: None Tobacco use: No Caffeine use: Yes 1 cup of coffee a day Drug use: No Alcohol use: No Multivitamin with Folic acid: Yes Mu-Ism or heritage: No Would refuse blood transfusion if medically necessary: No Are you currently employed? No Do you have any history of depression, anxiety, PTSD, eating disorders or other mood problems: No Do you have any safety concerns or history of traumatic events that you would like to discuss with your provider: No SDOH Screening: How often does this describe you? I don't have enough money to pay my bills: Never Within the past 12 months, have you worried that your food would run out before you had money to buy more: Never In the past 12 months, has lack of reliable transportation kept you from going to medical appointments or work, or from keeping things needed for daily living: Never In the past 12 months, have you had any concerns about having a place to live, or about the condition or quality of your housing: Never Are there any cultural or spiritual needs we should be aware of: No Depression/Anxiety Screening: denies symptoms of depression. OB Depression and Anxiety Screening- This Encounter (since 12/16/2022) None Genetic Screening: Partner present: No Patient verbalized knowledge of partner family health history: Yes Do you or your partner have any personal or family history of defects not previously discussed: No Do you have history of a complicated by anomaly, genetic condition, or demise: No ACOG Recommended Screening Screening for early gestational diabetes testing: Criteria for early testing requires elevated BMI plus one other risk factor: No weight on file for this encounter. (risk factor if > than 25 or 23 in Americans) Additional risk factors: None She does not meet ACOG criteria for early gestational DM screening. Screening for low dose aspirin use for the prevention of pre-eclampsia: Low dose aspirin should be considered if the patient has one high or two moderate risk factors: High risk factors: None Moderate risk ractors: None She does not meet criteria for low dose ASA Marital Status: Partner: Name: Akbar Ruiz Age: 34 Occupation: Director Of Speech Pathology Gender: Male History of STDs: None PAST MEDICAL HISTORY Diagnosis Date Anemia Environmental allergies PAST SURGICAL HISTORY Procedure Laterality Date EXTRACTION ERUPTED TOOTH/EXR Current Outpatient Medications Medication Sig Dispense Refill 114-IRON A-G-FOLATE 1 ORAL Take by mouth. Cetirizine (ZYRTEC) 10 mg cap fluticasone propionate (FLONASE NASAL) Use in the nose. azelastine (ASTELIN) 0.1% nasal spray Use 1 [place] in each nostril twice daily. (Patient not taking: Reported on 10/01/2022) 30 mL 5 MONO-LINYAH 0.25-35 mg-mcg per tablet Take 1 tablet by mouth once daily. (Patient not taking: Reported on 10/01/2022) No current facility-administered medications for this visit. Allergies As of Date: 12/17/2022 (No Known Allergies) Fully Assessed 12/17/2022 Does patient have penicillin allergy: No documented in this encounter [facility] documented as of this encounter (statuses as of 02/26/2023) [facility]09-29-2023 History of Past illness Narrative* Problem Noted Date Diagnosed Date Resolved Date Low-lying placenta 12/07/2022 Overview: 12/07/22 Repeat US 32 wks. SW documented as of this encounter (statuses as of 04/07/2023) [facility]09-18-2023 Miscellaneous Notes* Telephone Encounter - Geetha Herbert LPN - 11/26/2022 2:16 PM EDT Spoke with pt and assisted in scheduling ultrasound for placental placement. Geetha Herbert LPN * Telephone Encounter - Vic Rodriguez MD - 11/26/2022 2:09 PM EDT Agree with ultrasound to check placental location prior to NOB if possible * Telephone Encounter - Antonia Miles RN - 11/26/2022 1:09 PM EDT Patient is transferring care from [facility]. She has a prenew OB scheduled for December 17 and a new OBon December 21 with [facility]. Last ultrasound done November 15 shows partial previa. On patient notes it appears that she was to have a repeat ultrasound in 4 weeks per [facility]. Do you wish to order a ultrasound to recheck placental location prior to your new OB appointment? Please advise in Jennifer's absence. I will place a copy of her last ultrasound on your desk [facility] Miscellaneous Notes* Telephone Encounter - Judith Pimentel RN - 11/22/2022 10:05 AM EDT In [facility] mailbox. * Telephone Encounter - Antonia Miles RN - 11/22/2022 9:10 AM EDT Received medical records from [facility] but they are missing the dating ultrasound. Only ultrasound received was in November. I called patient to let her know and she said she will contact [facility] to send that to us. FYI [facility] NoteHNO ID: [id number] Author: Judith Pimentel RN Service: ? Author Type: ? Type: Progress Notes Filed: 11/21/2022 3:30 PM Note Text: Received records from [facility]. Sent for scanning. [facility] RN[facility] History of Present illness Narrative* Judith Pimentel RN - 11/21/2022 3:29 PM EDT Received records from [facility] [employer]. Sent for scanning. Judith Pimentel RN [facility]23 NoteHNO ID: [id number] Author: Francis Bey APRN.SCOUT EXECUTIVE Service: ? Author Type: Nurse Practitioner Type: Progress Notes Filed: 10/01/2022 8:20 PM Note Text: Subjective HPI Nontoxic-appearing female presents urgent care chief complaint right cheek swelling pain. Duration of symptoms 1 week. Associated symptoms rash on the right side of cheek. States presents today because she is having some neck pain and feels like the glands in her neck might be slightly swollen. Denies any OTC medication use. Has been using her regular facial creams. No known sick contacts. No recent medication changes or antibiotic use. Patient states she is 13 weeks . No eye pain or visual changes. Denies any fever body aches chills productive cough chest pain shortness of breath pleuritic pain hemoptysis nausea vomiting abdominal pain change in bowel or bladder habits. Past medical history prescription medication use and allergies reviewed. .Patient presents with: Mass: Right cheek red and swelling , neck pain, swollen lymph nodes started last week PAST MEDICAL HISTORY Diagnosis Date Environmental allergies PAST SURGICAL HISTORY Procedure Laterality Date EXTRACTION ERUPTED TOOTH/EXR ALLERGIES Patient has no known allergies. MEDICATIONS mupirocin (BACTROBAN) 2 % ointment Apply to affected area three times daily for 5 days. azelastine (ASTELIN) 0.1% nasal spray Use 1 [place] in each nostril twice daily. (Patient not taking: Reported on 10/01/2022) MONO-LINYAH 0.25-35 mg-mcg per tablet Take 1 tablet by mouth once daily. (Patient not taking: Reported on 10/01/2022) FAMILY HISTORY Problem Relation Age of Onset other ([place]) Father 58 other (other) Sister Hypertension Sister Social History Tobacco Use Smoking status: Never Smokeless tobacco: Never Substance Use Topics Alcohol use: Not Currently Drug use: Never BP 137/84 Pulse 83 Temp 37.4 ?C (99.3 ?F) Resp 21 Wt 69.1 kg (152 lb 6.4 oz) SpO2 100% BMI 23.17 kg/m? Review of Systems Constitutional: Negative for chills, fever and malaise/fatigue. HENT: Negative for congestion, ear discharge, ear pain, sinus pain and sore throat. Eyes: Negative for blurred vision, pain, discharge and redness. Respiratory: Negative for cough, hemoptysis, sputum production, shortness of breath, wheezing and stridor. Cardiovascular: Negative for chest pain. Gastrointestinal: Negative for abdominal pain, diarrhea, nausea and vomiting. Musculoskeletal: Negative for myalgias. Skin: Positive for rash. Negative for itching. Neurological: Negative for dizziness and headaches. Objective Physical Exam Constitutional: General: She is not in acute distress. Appearance: She is not toxic-appearing. HENT: Head: Normocephalic. Comments: 2 cm x 2 cm area of redness noted. Possible vesicles noted. No induration. No remote redness. No fluctuance. No adenopathy. Nose: Nose normal. Eyes: Pupils: Pupils are equal, round, and reactive to light. Cardiovascular: Rate and Rhythm: Normal rate. Pulmonary: Effort: Pulmonary effort is normal. No respiratory distress. Musculoskeletal: Cervical back: Normal range of motion. No rigidity or tenderness. Lymphadenopathy: Cervical: No cervical adenopathy. Skin: General: Skin is warm and dry. Neurological: General: No focal deficit present. Mental Status: She is alert. ASSESSMENT/PLAN: 1. Rash - ICD9: 782.1, ICD10: R21 - HSV1,2/VZV NAAT LESION Patient diagnosed with rash. There is no fluctuance or induration noted. No remote redness. No adenopathy. Rash did appear to have some vesicles. Differentials include cellulitis versus HSV. We will treat with mupirocin today. HSV swab will be obtained. Patient states lesion has not worsened. No increased pain or increased rash development was noted. We discussed even if test was positive we will not start antiviral medications due to no new lesions developing and 5 days into illness. Red flags for prompt reevaluation discussed with patient. Patient was educated on supportive therapies. Patient will follow up with primary care provider as needed. Patient was instructed to immediately proceed to emergency room for any new, worsening, or symptoms lasting longer than anticipated. The patient's clinical presentation is otherwise unremarkable at this time. Based on exam and clinical finding, the patient is stable for discharge. Plan of care was discussed with patient. Patient verbalizes understanding and agrees to plan of care. This note was generated using Cobrain software. It may contain errors in wording, punctuation, or spelling. Francis Bey APRN.[facility]09-14-2022 NotePatient Outreach (AGINTMLW) MARCUS URIZ ([id number]) 1990 F [employer] Date Time Provider Department 11/22/21 CYNTHIA SOLORZANO AGJOSUÉ During your visit today, we recorded the following information about you: Cynthia Solorzano LPN 11/23/2021 12:48 PM Signed TRANSITIONAL CARE MANAGEMENT ([facility]) COMMUNITY MONITORING PROGRAM - [place] Provider Action/FYI: SUMMARY: Pt discharged from [facility] on 11/21/2021. Admitted for: Labor and delivery- baby boy Risk score: unknown Contact made with patient: No - 2nd unsuccessful attempt - end outreach and close encounter Outreach ended Unable to reach pt via telephone. Outreach ended. Cynthia Solorzano LPN TRANSITIONAL CARE MANAGEMENT ([facility]) COMMUNITY MONITORING PROGRAM - [place] Provider Action/FYI: SUMMARY: Pt discharged from [facility] on 11/21/2021. Admitted for: Labor and delivery- baby boy Risk score: unknown Contact made with patient: No - next outreach attempt will be on next Outreach ended Left voicemail. Next outreach attempt will be 11/23/2021. Cynthia Solorzano LPN Allergies As of Date: 11/22/2021 (No Known Allergies) Date Reviewed: 11/23/2020 Reviewed by: Raul Mitchell APRN.SCOUT EXECUTIVE - Fully Assessed Reason for Visit: Transition Of Care [4074] Cmt: [facility] discharge 11/21/2021 TCM encounter Prescriptions as of 11/23/2021 - azelastine (ASTELIN) 0.1% nasal spray Use 1 [place] in each nostril twice daily. - MONO-LINYAH 0.25-35 mg-mcg per tablet Take 1 tablet by mouth once daily. Problem List As Of Date: 11/22/2021 (None) Encounter Status:Closed by CYNTHIA SOLORZANO on 11/23/21[facility]09-14-2022 NoteHNO ID: [id number] Author: Cynthia Solorzano LPN Service: ? Author Type: LICENSED NURSE Type: Progress Notes Filed: 11/23/2021 12:48 PM Note Text: TRANSITIONAL CARE MANAGEMENT ([facility]) COMMUNITY MONITORING PROGRAM - [place] Provider Action/FYI: SUMMARY: Pt discharged from [facility] on 11/21/2021. Admitted for: Labor and delivery- baby boy Risk score: unknown Contact made with patient: No - 2nd unsuccessful attempt - end outreach and close encounter Outreach ended Unable to reach pt via telephone. Outreach ended. Cynthia Solorzano LPN TRANSITIONAL CARE MANAGEMENT ([facility]) COMMUNITY MONITORING PROGRAM - [place] Provider Action/FYI: SUMMARY: Pt discharged from [facility] on 11/21/2021. Admitted for: Labor and delivery- baby boy Risk score: unknown Contact made with patient: No - next outreach attempt will be on next business day Outreach ended Left voicemail. Next outreach attempt will be 11/23/2021. [facility] History of Present illness Narrative* Cynthia Solorzano LPN - 11/22/2021 10:16 AM EDT TRANSITIONAL CARE MANAGEMENT ([facility]) COMMUNITY MONITORING PROGRAM - [place] Provider Action/FYI: SUMMARY: Pt discharged from [facility] on 11/21/2021. Admitted for: Labor and delivery- baby boy Risk score: unknown Contact made with patient: No - 2nd unsuccessful attempt - end outreach and close encounter Outreach ended Unable to reach pt via telephone. Outreach ended. Cynthia Solorzano LPN TRANSITIONAL CARE MANAGEMENT ([facility]) COMMUNITY MONITORING PROGRAM - [place] Provider Action/FYI: SUMMARY: Pt discharged from [facility] on 11/21/2021. Admitted for: Labor and delivery- baby boy Risk score: unknown Contact made with patient: No - next outreach attempt will be on next business day Outreach ended Left voicemail. Next outreach attempt will be 11/23/2021. Cynthia Solorzano LPN [facility]* Diagnosis Placenta previa antepartum- Primary Placenta previa without hemorrhage, antepartum [facility]* Diagnosis Encounter for anatomic survey- Primary Low-lying placenta Hemorrhage from placenta previa, unspecified as to episode of care 21 weeks gestation of state, incidental documented in this encounter [facility] note* Diagnosis with care elsewhere, antepartum- Primary H/O macrosomia in in prior , currently with other poor obstetric history [facility]* Diagnosis Low-lying placenta- Primary Hemorrhage from placenta previa, unspecified as to episode of care Encounter for supervision of normal in multigravida with care elsewhere, antepartum 28 weeks gestation of state, incidental [facility]* Diagnosis 34 weeks gestation of - Primary state, incidental Encounter for supervision of normal in multigravida H/O macrosomia in infant in prior , currently with other poor obstetric history [facility] encounter [facility]* Diagnosis 39 weeks gestation of - Primary state, incidental Encounter for supervision of normal in multigravida [facility] Diagnostic Procedure Only (Routine) - Authorized Specialty Diagnoses / Procedures Referred By Avery andrew Referred To Contact [facility] Diagnoses Placenta previa antepartum Procedures OBSTETRIC ULTRASOUND WHI US PREG UTERUS AFTER 1ST TRIMEST GESTATION Vic Rodriguez MD [address] [place] [address] [address] Referral ID Status Reason Start Date Expiration Date Visits Requested Visits Authorized [id number] Authorized Auto-Generat ed Referral 11/26/2022 11/26/2023 1 1 [facility] Summary Purpose Family History No Family History Records FoundNo Family History Records FoundNo Family History Records Found Advance Directives No Advanced Directives Records FoundNo Advanced Directives Records FoundNo Advanced Directives Records Found Health Concerns Problem Noted Date Diagnosed Date [facility] Education - [facility] 12/21/2022 [place] - [place] 12/21/2022 Problem Noted Date Diagnosed Date [facility] - [facility] 12/21/2022 [facility] - [place] 12/21/2022 Problem Noted Date Diagnosed Date [facility] - [facility] 12/21/2022 [facility] - [place] 12/21/2022 Additional Source Comments INFORMATION SOURCE (unrecogn ized section and content) DATE CREATED AUTHOR AUTHOR'S ORGANIZ ATION 12/09/2021 [facility] DATE CREATED AUTHOR AUTHOR'S ORGANIZ ATION 04/06/2023 [facility] Source Comments (unrecognize d section and content) In the event this informatio n is protected by the Federal Confidentiality of Alcohol and Drug Abuse Patient Records regulations: The Federal rules restrict any use of the information to criminally investigate or prosecute any alcohol or drug abuse patient.[facility] Hospital[facility] the event this information is protected by the Federal Confidentiality of Alcohol and Drug Abuse Patient Records regulations: The Federal rules restrict any use of the information to criminally investigate or prosecute any alcohol or drug abuse patient.[facility] HospitalIn the event this information is protected by the Federal Confidentiality of Alcohol and Drug Abuse Patient Records regulations: The Federal rules restrict any use of the information to criminally investigate or prosecute any alcohol or drug abuse patient.[facility] HospitalIn the event this information is protected by the Federal Confidentiality of Alcohol and Drug Abuse Patient Records regulations: The Federal rules restrict any use of the information to criminally investigate or prosecute any alcohol or drug abuse patient.[facility] HospitalIn the event this information is protected by the Federal Confidentiality of Alcohol and Drug Abuse Patient Records regulations: The Federal rules restrict any use of the information to criminally investigate or prosecute any alcohol or drug abuse patient.[facility] HospitalIn the event this information is protected by the Federal Confidentiality of Alcohol and Drug Abuse Patient Records regulations: The Federal rules restrict any use of the information to criminally investigate or prosecute any alcohol or drug abuse patient.[facility] HospitalIn the event this information is protected by the Federal Confidentiality of Alcohol and Drug Abuse Patient Records regulations: The Federal rules restrict any use of the information to criminally investigate or prosecute any alcohol or drug abuse patient.[facility] HospitalIn the event this information is protected by the Federal Confidentiality of Alcohol and Drug Abuse Patient Records regulations: The Federal rules restrict any use of the information to criminally investigate or prosecute any alcohol or drug abuse patient.[facility] HospitalIn the event this information is protected by the Federal Confidentiality of Alcohol and Drug Abuse Patient Records regulations: The Federal rules restrict any use of the information to criminally investigate or prosecute any alcohol or drug abuse patient.[facility] HospitalIn the event this information is protected by the Federal Confidentiality of Alcohol and Drug Abuse Patient Records regulations: The Federal rules restrict any use of the information to criminally investigate or prosecute any alcohol or drug abuse patient.[facility] HospitalIn the event this information is protected by the Federal Confidentiality of Alcohol and Drug Abuse Patient Records regulations: The Federal rules restrict any use of the information to criminally investigate or prosecute any alcohol or drug abuse patient.[facility] Reason for Visit (unrecogniz ed section and content) Reason Comments Received Outside Medical Records Reason Comments records received missing information Reason Comments ultrasound follow up Reason Comments US Specialty Diagnoses / Procedures Referred By Conteugenie t Referred To Contact [facility] Diagnoses Placenta previa antepartum Procedures OBSTETRIC ULTRASOUND WHI US PREG UTERUS AFTER 1ST TRIMEST GESTATION Vic Rodriguez MD [address] [place] [address] [facility] [address] [place] [address] Referral ID Status Reason Start Date Expiration Date V isits Requested Visits Authorized [id number] Closed Auto-Generate d Referral 11/26/2022 11/26/2023 1 1 Reason Comments Care Reason Comments PRAF Reason Onset Date Comments Care 01/14/2023 Reason Onset Date Comments Care 02/26/2023 Reason Onset Date Comments Care 04/05/2023 Care Teams (unrecognized sec tion and content) Communications Planner Relationship Specialty Start Date End Date Raul Mitchell, CLAIMS DIRECTOR.SCOUT EXECUTIVE [address] [place] [address] PCP - General Internal Medicine 08/09/20 Communications Planner Relationship Specialty Start Date End Date Raul Mitchell, CLAIMS DIRECTOR.SCOUT EXECUTIVE [address] [place] [address] PCP - General Internal Medicine 08/09/20 Communications Planner Relationship Specialty Start Date End Date Raul Mitchell, CLAIMS DIRECTOR.KYRA [address] [place] [address] PCP - General Internal Medicine 08/09/20 Communications Planner Relationship Specialty Start Date End Date Raul Mitchell, CLAIMS DIRECTOR.SCOUT EXECUTIVE [address] [place] [address] PCP - General Internal Medicine 08/09/20 Communications Planner Relationship Specialty Start Date End Date Raul Mitchell, CLAIMS DIRECTOR.SCOUT EXECUTIVE [address] [place] [address] PCP - General Internal Medicine 08/09/20 Communications Planner Relationship Specialty Start Date End Date Raul Mitchell, CLAIMS DIRECTOR.SCOUT EXECUTIVE [address] [place], [place] [id number] PCP - General Internal Medicine 08/09/20 Communications Planner Relationship Specialty Start Date End Date Raul Mitchell, CLAIMS DIRECTOR.SCOUT EXECUTIVE [address] [place] [address] PCP - General Internal Medicine 08/09/20 FOR RECORDS PERTAINING TO PATIENTS WHO ARE OR HAVE BEEN ENROLLED IN A CHEMICAL DEPENDENCY/SUBSTANCEABUSE PROGRAM, SOME INFORMATION MAY BE OMITTED. This clinical summary was aggregated from multiple sources. Caution should be exercised in using it in the provision of clinical care. This summary normalizes information from multiple sources, and as a consequence, information in this document may materially change the coding, format and clinical context of patient data. In addition, data may be omitted in some cases. CLINICAL DECISIONS SHOULD BE BASED ON THE PRIMARY CLINICAL RECORDS. [facility]. provides no warranty or guarantee of the accuracy or completeness of information in this document.
[2023-04-08 08:08] LABS: ROM Internal Control Test YES-OK TO RESULT pt. (Internal QC)
[2023-04-08 08:11] LABS: ROM Patient Test POSITIVE (Negative)
--- NOTE | 2023-04-08 08:16 | HP.PCM.OB_ITS ---
HPI - General General Date of Admission: 04/08/23 HPI Narrative MARCUS RUIZ, is a 33 F @ 40.1 weeks who presents with SROM at 2:30 am at 04/08/23 - clear fluid PFSH [facility] Medical History (Updated 04/08/23 @ 08:[address] Lucrecia Scruggs MD) Vaginal delivery Home Medications vits,calcium no.78-iron fumarate-folic acid 29 mg-1 mg tablet (Prenatabs FA) 1 tab PO DAILY 10/21/16 [History Last Taken 11/18/21] Allergy/AdvReac Type Severity Reaction Status Date / Time No Known Allergies Allergy Verified 11/19/21 22:16 Surgical History [place] teeth extracted Social History Smoking Status: Never smoker History Elective abortions Hx Para 3 Spontaneous abortions Hx # Term Pregnancies Ectopic pregnancies Hx # Pregnancies Multiple births # of living children Vital Signs Vital Signs Vital Signs: 04/08/23 07:49 04/08/23 07:49 04/08/23 07:50 Pulse Rate 92 92 Blood Pressure 131/78 H BP Systolic 131 BP Diastolic 78 Pulse Ox 04/08/23 07:50 04/08/23 07:55 04/08/23 07:55 Pulse Rate 100 Blood Pressure BP Systolic BP Diastolic Pulse Ox 98 97 04/08/23 07:57 04/08/23 07:57 04/08/23 08:12 Pulse Rate 92 Blood Pressure 134/76 H 124/74 H BP Systolic 134 124 BP Diastolic 76 74 Pulse Ox 04/08/23 08:12 Pulse Rate 84 Blood Pressure BP Systolic BP Diastolic Pulse Ox Physical Exam Narrative 3cm per Nursing Labs Labs Labs: Blood Type O POSITIVE Antibody Screen NEGATIVE Hct 38.3 % (37-47) Hgb 12.6 g/dL (12.0-15.0) Syphilis Total Ab Non-reactive VZV IgG Antibody > 4000 index (Immune >165) Rubella IgG Antibody Reactive (Nonreactive) Hep Bs Antigen Non-Reactive (Nonreactive) Hepatitis C Antibody Non-Reactive (Nonreactive) Hepatitis C Ab (EIA) <0.1 s/co ratio (0.0-0.9) Chlamydia DNA (LITZY) Negative (Negative) N.gonorrhoeae DNA (LITZY) Negative (Negative) HIV 1&2 Antibody Non-Reactive (Nonreactive) Glucose 1 Hr 50 gm 68 mg/dL (70-140) L Group B Strep DNA Negative (Negative) Rhogam given: No Miscellaneous Test Assessment & Plan (1) Prior macrosomia in third trimester, antepartum: (2) with care elsewhere: (3) Positive GBS test: PLAN: Plan Admit to L&D [place] FHR/TOCO Epidural if requested for pain Monitor VS Anticipate PCN for GBS Previous growth us was 62% in february 2023. lauro
[2023-04-08] MEDS: Lactated Ringers 1,000 ML 50 ML IV (09:05)
[2023-04-08 09:17] LABS: Absolute Lymphocyte Count 1.83 X10^3/uL (0.83-4.51); Absolute Neutrophil Count 7.1 X10^3/uL (2.0-7.7); Basophil# 0.05 X10^3/uL; Basophil% 0.5 % (0-1); Eosinophil# 0.13 X10^3/uL; Eosinophils% 1.3 % (0-5); Hematocrit 32.4 % (37-47); Lymphocyte # 1.83 X10^3/ul (0.83-4.51); Lymphocyte % 18.7 % (19-41); Mean Corp Hgb Conc 30.9 g/dL (32-36); Mean Corpuscular Hgb 24.1 pg (27.0-32.0); Mean Corpuscular Volume 78.1 fL (81-99); Mean Platelet Vol. 12.8 fl (6.2-12.0); Monocyte# 0.64 X10^3/uL; Monocyte% 6.5 % (0-10); NRBC Flagged by Analyzer 0 % (0-5); Neutrophil # 7.09 X10^3/uL (2.7-7.7); Neutrophil % 72.3 % (47-70); Platelet Count 203 K/mm3 (150-450); RBC Distribution Width CV 14.5 % (11.6-14.6); RBC Distribution Width SD 40.5 fl (35.1-43.9); Red Blood Count 4.15 M/mm3 (4.2-5.4); White Blood Count 9.8 K/mm3 (4.4-11.0)
[2023-04-08] MEDS: Penicillin G Pot 5,000,000 UNITS in 0.9% Normal Saline (100mL MB+) 100 ML 150 UNITS IV (09:17)
[2023-04-08] MEDS: Oxytocin 15 Units/NS 250ml 15 UNITS/250 ML IV.SOLN 2 UNITS IV (09:30)
[2023-04-08 09:51] LABS: Syphilis Antibodies Non-reactive
[2023-04-08] MEDS: Acetaminophen 500 MG Tablet PO (11:05)
--- NOTE | 2023-04-08 12:36 | PCM.PN.BLA ---
Progress Note Pt seen at bedside, VE: 3-4/-2. continue Pitocin. Anticipate
[2023-04-08] MEDS: LACTATED RINGERS 500 ML 999 ML IV (12:45)
[2023-04-08] MEDS: Penicillin G 3,000,000 Units 50 ML 100 UNITS IV (13:13)
[2023-04-08] MEDS: fentaNYL-bupivacaine (epidural) 100 ML BAG EPIDURAL (13:20)
--- NOTE | 2023-04-08 16:21 | EX.PCM.OBRPT ---
Vaginal Delivery Maternal Presentation Maternal Presentation: Active Labor Operative Information Date of Procedure: 04/08/23 Pre-Operative Diagnosis: Active labor at term Post-Operative Diagnosis: NSVE Surgery / Procedure Performed: Spontaneous Vaginal Delivery Type of Anesthesia: Epidural Estimated Blood Loss: 250ml Time of Delivery: 16:10 Findings Description of Procedure: Progressed to complete with urge to push. Epidural for pain management. of viable female over intact perineum. APGARS 8,9 respectively. head delivered with body immediately forthcoming. Placed on maternal abdomen, strong cry. Mouth and nares suctioned for secretions. Pitocin started for active 3rd stage management. Cord doubly clamped and cut by FOB after pulsations ceased, delayed cord clamping. Placenta delivered intact via [place] , 3 vessel cord intact. Perineum inspected and revealed intact. Fundus firm and hemostasis achieved. EBL 250ml . Mom and baby stable, planning to breastfeed. Family bonding well. notified of delivery. Presentation: Vertex and ANMOL Amniotic Membrane Rupture Type: Spontaneous Amniotic Fluid Description: Clear Placental Delivery Description: Spontaneous Placenta Disposition: [facility] Cord Vessel Description: 3 Vessels Cord Entanglement: Around neck x 1, loose Nuchal Cord Compression: Without compression Infant A Gender: Female (1 minute): 8 (5 minute): 9 Delayed Cord Clamping: Yes Post Vaginal Delivery Medications Given After Delivery: IV Pitocin and IM Pitocin Episiotomy Description: None Laceration: None Complication Complications: None
[2023-04-08] MEDS: Oxytocin 15 Units/NS 250ml 15 UNITS/250 ML IV.SOLN 83 UNITS IV (16:41)
[2023-04-09 01:03] VITALS: BP 116/74; PULSE 69; RESP 14; TEMP 36.8; O2SAT 97
[2023-04-09 04:13] VITALS: BP 103/60; PULSE 69; RESP 14; TEMP 36.6
--- NOTE | 2023-04-09 08:19 | PCM.PN.OB ---
Subjective Subjective Doing well per patient and nursing staff. Ambulating and taking PO without difficulty. Voiding and passing flatus. Pain controlled. , services for assistance. Denies headache, visual changes, chest pain, shortness of breath, leg pain or increased bleeding. Lochia normal. Objective Data Objective Data Vital Signs: Vital Signs Temp Pulse Resp BP Pulse Ox O2 Del Method 97.8 F 69 14 103/60 97 Room Air 04/09/23 04:13 04/09/23 04:13 04/09/23 04:13 04/09/23 04:13 04/09/23 01:03 04/09/23 04:13 Oxygen Delivery Method Room Air Weight: 192 lb Body Mass Index (BMI) 29.2 Intake & Output: Intake and Output for Last 24 Hours 04/07/23 04/08/23 04/09/23 23:59 23:59 23:59 Intake Total 1303.90 / 1303.90 Output Total 202 / 202 1801 / 1801 Balance 1101.90 / 1101.90 -1801 / -1801 Lab / Micro Data 04/08/23 09:05 Labs: Laboratory Results - last 24 hr 04/08/23 09:05: WBC 9.8, RBC 4.15 L, Hgb 10.0 L, Hct 32.4 L, MCV 78.1 L, MCH 24.1 L, MCHC 30.9 L, RDW Std Deviation 40.5, RDW Coeff of Kimmy 14.5, Plt Count 203, MPV 12.8 H, Immature Gran % (Auto) 0.700, Neut % (Auto) 72.3 H, Lymph % (Auto) 18.7 L, [place] % (Auto) 6.5, Eos % (Auto) 1.3, Baso % (Auto) 0.5, Absolute Neuts (auto) 7.1, Absolute Lymphs (auto) 1.83, Nucleated RBC % 0, Syphilis Total Ab Non-reactive, Blood Type O POSITIVE, Antibody Screen NEGATIVE ROS Constitutional Constitutional: Reports systems reviewed and no addt'l complaints, except as documented; Denies headache(s) Eyes Eyes: Denies acute decrease in peripheral vision, blurry vision or change in vision ENT HEENT: Reports systems reviewed and no addt'l complaints, except as documented Cardiovascular Cardiovascular: Denies chest pain or dizziness Respiratory/Chest Respiratory/Chest: Denies cough, dyspnea, dyspnea on exertion, shortness of breath at rest or shortness of breath with exertion Gastrointestinal Gastrointestinal: Denies abdominal pain, diarrhea, nausea or vomiting Genitourinary Genitourinary: Denies abdominal discomfort Musculoskeletal Musculoskeletal: Denies limited range of motion Integumentary Integumentary: Reports systems reviewed and no addt'l complaints, except as documented Neurologic Neurologic: Reports systems reviewed and no addt'l complaints, except as documented Psychiatric Psychiatric: Reports systems reviewed and no addt'l complaints, except as documented Endocrine Endocrinology: Reports systems reviewed and no addt'l complaints, except as documented Hematologic/Lymphatic Hematologic/Lymphatic: Reports systems reviewed and no addt'l complaints, except as documented Allergic/Immunologic Allergic/Immunologic: Reports systems reviewed and no addt'l complaints, except as documented Physical Exam Const alert and oriented x3 General Appearance: cooperative Orientation / Consciousness: awake, oriented to person, oriented to place and oriented to time Exam Limitations: no limitations HEENT normocephalic Head and Scalp: normal to inspection, normocephalic and atraumatic Face and Sinus: normal facial exam Eyes General Eye: normal appearance of both eyes Neck full ROM Chest Chest: symmetrical chest wall rise Resp normal respiratory effort and normal air movement Auscultation: clear to auscultation bilaterally Cardio regular rate, regular rhythm, S1 normal heart sound, S2 normal heart sound, no murmurs, no rub, no gallops and no clicks GI normal to inspection, nondistended, normoactive bowel sounds and non-tender appearance of the vagina normal Bladder / Kidney Exam: no CVA tenderness Back/Spine normal ROM Extremity normal to inspection and full ROM Skin no rashes or lesions noted Neuro oriented x3 and moves all extremities Sensorium / Orientation: awake, alert and oriented to person Deep Tendon Reflexes: Rt Patellar (L4): 2+ and Lt Patellar (L4): 2+ Assessment & Plan (1) Lactating mother: PLAN: Plan 1) PPD#1 2) support 3) Pain management 4) D/C home today
--- NOTE | 2023-04-09 08:21 | DS.PCM_ITS ---
Providers Date of Admission: 04/08/23 Primary Care Physician: Zuri Primary Care Phys Reason For Visit: VAGINAL DELIVERY Diagnosis Discharge Diagnosis (1) Lactating mother: Status: Acute Code(s): Z39.1 - Encounter for care and examination of lactating mother Plan 1) PPD#1 2) support 3) Pain management 4) D/C home today Medications at Discharge Home Medications vits,calcium no.78-iron fumarate-folic acid 29 mg-1 mg tablet (Prenatabs FA) 1 tab PO DAILY 10/21/16 Weight / BMI Weight Weight: 192 lb Body Mass Index (BMI) 29.2 ABG / Lab / Microbiology Data 04/08/23 09:05 Laboratory: Laboratory Results - last 24 hr 04/08/23 09:05: WBC 9.8, RBC 4.15 L, Hgb 10.0 L, Hct 32.4 L, MCV 78.1 L, MCH 24.1 L, MCHC 30.9 L, RDW Std Deviation 40.5, RDW Coeff of Kimmy 14.5, Plt Count 203, MPV 12.8 H, Immature Gran % (Auto) 0.700, Neut % (Auto) 72.3 H, Lymph % (Auto) 18.7 L, [place] % (Auto) 6.5, Eos % (Auto) 1.3, Baso % (Auto) 0.5, Absolute Neuts (auto) 7.1, Absolute Lymphs (auto) 1.83, Nucleated RBC % 0, Syphilis Total Ab Non-reactive, Blood Type O POSITIVE, Antibody Screen NEGATIVE D/C Instructions Discharge Diet: No restrictions Discharge Activity: Return to Normal Activity, May Shower and May Take a Tub Bath May resume sexual activity in: 6 weeks Weight Bearing Status: Full weight bearing Call your doctor if you observe: Fever of 101 or Higher, Inability to urinate, Inability to have a bowel movement, Using more than 1 pad per hour, Shortness of breath, Chest pain, Increased palpitations (irregular heartbeat) and Calf discomfort Please Follow Up With: Nicolle Chauhan CNM When: 2 weeks virtual and 6 weeks PP Meaningful Use Info Meaningful Use Diagnoses (Choose all that apply): None applicable Discharge Plan Admission Admit Date/Time: 04/08/23 08:10 Primary Reason for Your Visit: Vaginal Delivery Attending Provider: Chauhan,Nicolle Primary Care Provider: Care Physician,No Primary Discharge Orders/Prescriptions Prescriptions: Continued Prenatabs FA 1 TABLET tablet 1 tab PO DAILY Referrals / Follow Up: Care Physician,No Primary [Primary Care Provider] - Disposition Disposition (needs filled in before D/C Order can be placed): Home, Self Care
[2023-04-09 09:00] VITALS: BP 116/82; PULSE 66; RESP 18; TEMP 36.7; O2SAT 96
[2023-04-09 12:00] VITALS: BP 113/63; PULSE 70; RESP 16; TEMP 36.7; O2SAT 96
== END 2023-04-09 17:25 | disposition home or self-care (01) | DRG 560 ==
LOC: WPOUT 08:14 → WP 08:14
PROVIDERS: Admitting Provider Obstetrics & Gynecology; Referring Provider Advanced Practice Midwife; Visit Provider Advanced Practice Midwife
DX: O99.824 Streptococcus B carrier state complicating childbirth (principal); Z37.0 Single live birth; O69.81X0 Labor and delivery complicated by cord around neck, without compression, not applicable or unspecified; Z3A.40 40 weeks gestation of pregnancy
CPT/HCPCS: 59025; 59050; 84112; 85025; 86780; 86850; 86900; 86901; 99221; J7120; G0378